=== PATIENT | male | born 1945 | race Asian ===

== ENCOUNTER 2019-05-11 23:12 | Emergency (ER) | payer OTHER ==
[2019-05-11 23:56] VITALS: BP 108/75; TEMP 98.2; BMI 24.0
--- NOTE | 2019-05-12 00:04 | PDOC ---
History of Present Illness - General Chief Complaint: Urinary Problem Stated Complaint: ABDOMINAL PAIN - History of Present Illness Initial Comments: The pt is a 74M w/ a history of HTN and Parkinson's disease who presents for evaluation of urinary retention for 36 hours. The pt reports a recent urological procedure last week. He also reports having retention before (s/p enciso removal approx 20 days ago). He denies fevers/chills, chest pain, trouble breathing, N/V, dizziness, or changes in sensation 05/12/19 01:46 Past History - Past Medical History Allergies/Adverse Reactions: Allergies Allergy/AdvReac Type Severity Reaction Status Date / Time Penicillins Allergy Verified 05/11/19 23:47 Home Medications: Ambulatory Orders Carbidopa/Levodopa [Carbidopa-Levodopa 25-100 Tab] 1 each PO QID 05/11/19 Ciprofloxacin HCl [Cipro] 500 mg PO BID 05/11/19 Tamsulosin HCl [Flomax] 0.4 mg PO DAILY 05/11/19 COPD: No Disorders: Yes (PT REPORTS UROLOGY SURGERY 04/2019/[facility]) Other medical history: Parkinson's Disease - Psycho Social/Smoking Cessation Hx Smoking History: Never smoked Have you smoked in the past 12 months: No Information on smoking cessation initiated: No Hx Alcohol Use: No Drug/Substance Use Hx: No Review of Systems - Review of Systems Able to Perform ROS?: Yes Comments:: GENERAL/CONSTITUTIONAL: No fever or chills. No weakness HEAD, EYES, EARS, NOSE AND THROAT: No change in vision. No change in hearing. No sore throat CARDIOVASCULAR: No chest pain or shortness of breath RESPIRATORY: Denies cough, hemoptysis GASTROINTESTINAL: No nausea, vomiting, diarrhea or constipation GENITOURINARY: Retention MUSCULOSKELETAL: No joint or muscle swelling or pain. No neck or back pain SKIN: No rash NEUROLOGIC: No headache, vertigo, loss of consciousness, or change in strength/ sensation ENDOCRINE: No increased thirst. No abnormal weight change HEMATOLOGIC/LYMPHATIC: No anemia, easy bleeding, or history of blood clots ALLERGIC/IMMUNOLOGIC: No hives or skin allergy 05/12/19 00:04 *Physical Exam - Vital Signs Last Vital Signs Temp Pulse Resp BP Pulse Ox 98.2 F 112 H 18 108/75 98 05/11/19 23:38 05/11/19 23:38 05/11/19 23:38 05/11/19 23:38 05/11/19 23:38 - Physical Exam Comments: GENERAL: Awake, alert, and oriented to person/place/time, in no acute distress HEAD: No signs of trauma, normocephalic, atraumatic EYES: PERRLA, EOMI, sclera anicteric, conjunctiva clear ENT: Hearing grossly normal, nares patent, oropharynx clear without exudates. Moist mucosa LUNGS: No distress, speaks in full sentences, clear to auscultation bilaterally HEART: Regular rate and rhythm, normal S1 and S2, no murmurs appreciated, peripheral pulses normal and equal bilaterally ABDOMEN: Suprapubic distention and TTP, normoactive bowel sounds EXTREMITIES: Normal inspection, Normal range of motion, no edema. No clubbing or cyanosis NEUROLOGICAL: Cranial nerves II through XII grossly intact. Normal speech, no focal sensorimotor deficits SKIN: Warm, Dry 05/12/19 00:04 Medical Decision Making - Medical Decision Making The pt is a 74M w/ a history of HTN, Parkinson's and a recent Urological procedure approx 1 week ago who presents for evaluation of urinary retention for 36 hours. ED Course Enciso placed with initial 900cc of urine output UA and UCx sent Will D/C w/ leg bag and Urology follow up Pt has Urology in [place] 05/12/19 00:51 Pt w/ evidence of UTI Pt taking Ciprofloxacin Discharge instructions and return precautions given Pt in agreement and verbalized understanding Dispo: home 05/12/19 01:45 Discharge - Discharge Information Problems reviewed: Yes Clinical Impression/Diagnosis: Urinary retention Condition: Improved Disposition: HOME - Admission No - Follow up/Referral Referrals: Omid Araiza [Primary Care Provider] - - Patient Discharge Instructions Patient Printed Discharge Instructions: DI for Urinary Retention in Men Additional Instructions: You were seen in the Emergency Department for evaluation of urinary retention. A enciso was placed. You need to follow up with your Urologist this week. Continue to take your medications as prescribed. Review the handout provided at discharge. Return to the Emergency Department if you develop blood in your urine , fevers/chills, abdominal pain, dizziness, chest pain, trouble breathing, worsening symptoms, or any new/concerning symptoms. Print Language: SWEDISH - Post Discharge Activity
--- NOTE | 2019-05-12 00:19 | PDOC ---
Documentation entered by Lin Fortune SCRIBE, acting as scribe for Lita Aguilar DO. Lita Aguilar DO: This documentation has been prepared by the Tong garcia Adrianna, SCRIBE, under my direction and personally reviewed by me in its entirety. I confirm that the documentation accurately reflects all work, treatment, procedures, and medical decision making performed by me. Attending Attestation - Resident Resident Name: Hank Hogue - ED Attending Attestation I have performed the following: I have examined & evaluated the patient, The case was reviewed & discussed with the resident, I agree w/resident's findings & plan - HPI HPI: 05/12/19 00:18 see resident hpi - Physicial Exam PE: 05/12/19 00:18 agree with resident exam - Medical Decision Making 05/12/19 00:18 74-year-old male with urinary retention Alanis catheter placed without complication by nursing with immediate return of clear yellow urine Plan for DC home with a leg bag, patient will follow up with his regular urologist in [place]
[2019-05-12 01:41] LABS: EPI CELLS 0.2 /HPF (0-5/HPF); HYALINE CASTS 106 /lpf (0-8); PH,URINE 5.5 (5.0-8.0); URINE APPEARANCE CLOUDY; URINE BILIRUBIN NEGATIVE (NEGATIVE); URINE COLOR YELLOW; URINE GLUCOSE (UA) TRACE (NEGATIVE); URINE KETONE NEGATIVE (NEGATIVE); URINE LEUK ESTERASE 2+ (NEGATIVE); URINE NITRITE POSITIVE (NEGATIVE); URINE PROTEIN NEGATIVE (NEGATIVE); URINE RBC 8 /hpf (0-4); URINE UROBILINOGEN 0.2 mg/dL (0.2-1.0); URINE WBC 88 /hpf (0-5)
[2019-05-12 02:24] VITALS: PULSE 89
== END 2019-05-12 02:26 | disposition home or self-care (01) ==
LOC: JER 23:12
PROC: 0T9B70Z Drainage of Bladder with Drainage Device, Via Natural or Artificial Opening (ICD-10-PCS; principal; 2019-05-11)
DX: R33.9 Retention of urine, unspecified (principal); Z88.0 Allergy status to penicillin; I10 Essential (primary) hypertension; G20 Parkinson's disease
CPT/HCPCS: 81003; 87086; 99283-25

== ENCOUNTER 2019-09-04 07:16 | Emergency (ER) | payer OTHER ==
[2019-09-04 07:23] VITALS: BMI 18.3
--- NOTE | 2019-09-04 07:29 | PDOC ---
History of Present Illness - General Chief Complaint: Urinary Problem Stated Complaint: URINARY PROBLEM Time Seen by Provider: 09/04/19 07:29 - History of Present Illness Initial Comments: HPI: 74yo M with PMH of BPH, Parkinson's, COPD, CAD s/p 3 stents, HTN presenting with urinary retention. Patient has had a urinary catheter in place since April 2019 following a urologic procedure. He and his present today because the catheter has not drained any urine since yesterday morning. Has not noticed any foul smelling or unusual color urine recently. Patient is experiencing abdominal discomfort due to the retention. Patient experiences frequent falls which he attributes to instability from his Parkinson's Disease. Last fell last night. No loss of consciousness, nausea, or vomiting. No saddle anesthesia, lower back pain, or bowel movement abnormalities. Denies fever or chills. PCP: Dr. Saleem Araiza Urologist: a provider in [place] ROS: Constitutional: no fever, no chills HEENT: no throat pain, no dysphagia Cardiovascular: no chest pain, no palpitations Respiratory: no cough, no shortness of breath Gastrointestinal: +abdominal pain, no nausea Genitourinary: no dysuria, +urinary retention Musculoskeletal: no myalgia, no arthralgia Skin: no rash, no itching Neurologic: no headache, no weakness Psych: no agitation, no anxiety PE: General: Awake, alert, and fully oriented, in no acute distress Head: Hematoma present on right side of forehead, wrapped with a bandage Eyes: EOMI, sclera anicteric ENT: Moist mucus membranes Neck: Normal ROM, supple Lungs: Lungs clear, Normal breath sounds Cardio: Regular rhythm, S1 and S2 present Abdomen: Soft, tenderness to palpation in suprapubic area. No CVA tenderness. Extremities: Normal range of motion, Distal pulses present SKIN: Warm, Dry, normal turgor Neurologic: Cranial nerves II through XII grossly intact. Normal speech ED Course/MDM: DDX including but not limited to UTI, BPH, prostatitis, CA, cauda equina Labs Bedside US Replace Enciso catheter Decision made to obtain CT Head and Cspine for patient's mechanical falls 09/04/19 07:29 Bedside US showing about 460cc bladder volume Enciso catheter replaced by nurse, found to be obstructed by sediment 09/04/19 08:18 CT as read by radiology: " [id number] EXAM#: TYPE/ EXAM: RESULT: CT/HEAD CT WITHOUT CONTRAST CT/CERVICAL SPINE CT W/O CONTR Status post fall. Rule out bleed CT scan of the brain. A noncontrast CT scan of the brain was performed. There is moderate volume loss and ventricular dilatation. Mild periventricular chronic microvascular ischemic changes are present No mass lesion, gross acute infarct or intracranial hemorrhage are identified. Visualized paranasal sinuses and mastoid air cells are well aerated. Calcification of the cavernous carotid arteries are noted. The calvarium is intact . There is mild soft tissue swelling of the scalp/ hematoma over right side of the forehead Impression: Moderate atrophy. No gross evidence of a focal intracranial lesion or hemorrhage is seen. Mild soft tissue swelling of the scalp/hematoma over right side of the forehead CT scan of the cervical spine without intravenous contrast Coronal and sagittal reconstruction images were obtained. Minimal retrolisthesis of C4 over C5, likely degenerative. Otherwise, no gross fracture, subluxation or prevertebral soft tissue swelling is seen. No jumped facets are identified. Moderate to marked degenerative disc disease at C4-C5 level with bilateral uncovertebral hypertrophy moderately narrowing the left foramen. C4-C5 moderate degenerative disc disease and bilateral uncovertebral hypertrophy slightly narrowing the right foramen. C3-C4 C5-C6 moderate degenerative disc disease, mainly posteriorly with mild left paracentral disc osteophyte complex and left uncovertebral hypertrophy moderately narrowing the left foramen. Visualized portion of the airway appears unremarkable. No gross enlarged lymph nodes are identified. Lung windows at the thoracic inlet demonstrates moderate COPD changes moderate size calcified plaque at the common carotid bifurcation, bilaterally IMPRESSION: The alignment is satisfactory. No gross fracture or subluxation is seen. No jumped facets are identified. Multilevel degenerative disc disease, as described above. Moderate COPD changes in the included lung apex, bilaterally. Reported By: Lakia Gandara MD 09/04/19 0930 " 09/04/19 09:40 CBC WBC 10.8 K/mm3 (4.0-10.0) H 09/04/19 08:27 RBC 5.04 M/mm3 (4.00-5.60) 09/04/19 08:27 Hgb 15.6 GM/dL (11.7-16.9) 09/04/19 08:27 Hct 46.3 % (35.4-49) 09/04/19 08:27 MCV 91.9 fl (80-96) 09/04/19 08:27 MCH 31.0 pg (25.7-33.7) 09/04/19 08: MCHC 33.8 g/dl (32.0-35.9) 09/04/19 08:27 RDW 13.6 % (11.9-15.9) 09/04/19 08:27 Plt Count 291 K/MM3 (134-434) 09/04/19 08:27 MPV 7.2 fl (7.5-11.1) L 09/04/19 08:27 Absolute Neuts (auto) 8.6 K/mm3 (1.5-8.0) H 09/04/19 08:27 Neutrophils % 80.2 % (42.8-82.8) 09/04/19 08:27 Lymphocytes % 12.2 % (8-40) 09/04/19 08: Monocytes % 6.2 % (3.8-10.2) 09/04/19 08:27 Eosinophils % 0.3 % (0-4.5) 09/04/19 08: Basophils % 1.1 % (0-2.0) 09/04/19 08:27 Nucleated RBC % 0 % (0-0) 09/04/19 08:27 Mild leukocytosis CMP Sodium 141 mmol/L (136-145) 09/04/19 08:27 Potassium 4.3 mmol/L (3.5-5.1) 09/04/19 08:27 Chloride 109 mmol/L (98-107) H 09/04/19 08:27 Carbon Dioxide 27 mmol/L (21-32) 09/04/19 08:27 Anion Gap 5 MMOL/L (8-16) L 09/04/19 08:27 BUN 14.5 mg/dL (7-18) 09/04/19 08:27 Creatinine 0.9 mg/dL (0.55-1.3) 09/04/19 08:27 Est GFR (CKD-EPI)AfAm 97.86 09/04/19 08:27 Est GFR (CKD-EPI)NonAf 84.43 09/04/19 08:27 Random Glucose 128 mg/dL (74-106) H 09/04/19 08:27 Calcium 9.0 mg/dL (8.5-10.1) 09/04/19 08:27 Total Bilirubin 0.6 mg/dL (0.2-1) 09/04/19 08:27 AST 15 U/L (15-37) 09/04/19 08:27 ALT 17 U/L (13-61) 09/04/19 08:27 Alkaline Phosphatase 101 U/L (45-117) 09/04/19 08:27 Total Protein 6.9 g/dl (6.4-8.2) 09/04/19 08:27 Albumin 3.6 g/dl (3.4-5.0) 09/04/19 08:27 Electrolytes unremarkable Normal Cr No transaminitis UTI present; given bactrim Prescription sent to pharmacy New enciso catheter well draining Patient to follow up with urologist Return precautions Stable for discharge 09/04/19 11:22 Past History - Past Medical History Allergies/Adverse Reactions: Allergies Allergy/AdvReac Type Severity Reaction Status Date / Time Penicillins Allergy Verified 09/04/19 07:23 Home Medications: Ambulatory Orders Atorvastatin Ca [Lipitor] 10 mg PO HS 09/04/19 Carbidopa/Levodopa [Carbidopa-Levodopa 25-100 Tab] 1 each PO BID 09/04/19 Clopidogrel Bisulfate [Clopidogrel] 75 mg PO DAILY 09/04/19 Finasteride [Proscar -] 5 mg PO DAILY 09/04/19 Fluticasone/Umeclidin/Vilanter [Trelegy Ellipta 100-62.5-25] 1 each IH DAILY 09/22 Metoprolol Succinate [Toprol Xl] 100 mg PO DAILY 09/04/19 Ramipril [Altace] 5 mg PO DAILY 09/04/19 Sulfamethoxazole/Trimethoprim [Bactrim Ds Tablet] 1 each PO BID #20 tablet 09/04 Tamsulosin HCl [Flomax] 0.4 mg PO DAILY 09/04/19 COPD: No Disorders: Yes (PT REPORTS UROLOGY SURGERY 04/2019/[facility]) HTN: Yes - Psycho Social/Smoking Cessation Hx Smoking History: Never smoked Have you smoked in the past 12 months: No Hx Alcohol Use: No Drug/Substance Use Hx: No *Physical Exam - Vital Signs Last Vital Signs Temp Pulse Resp BP Pulse Ox 98.5 F 90 18 125/73 99 09/04/19 07:19 09/04/19 07:19 09/04/19 07:19 09/04/19 07:19 09/04/19 07:19 ED Treatment Course - LABORATORY CBC & Chemistry Diagram: 09/04/19 08:27 09/04/19 08:27 Discharge - Discharge Information Problems reviewed: Yes Clinical Impression/Diagnosis: Problem with urinary catheter UTI (urinary tract infection) Qualifiers: Urinary tract infection type: site unspecified Hematuria presence: without hematuria Qualified Code(s): N39.0 - Urinary tract infection, site not specified Condition: Improved Disposition: HOME - Additional Discharge Information Prescriptions: Sulfamethoxazole/Trimethoprim [Bactrim Ds Tablet] 1 each PO BID #20 tablet - Follow up/Referral Referrals: Omid Araiza [Primary Care Provider] - - Patient Discharge Instructions Patient Printed Discharge Instructions: DI for Urinary Tract Infection (UTI) Additional Instructions: You came into the ED for evaluation of urinary retention. We replaced your urinary catheter. Lab work showed you have a urinary tract infection. Prescription sent to your pharmacy. Take as instructed Follow up with your urologist to discuss this ED visit and to further evaluate your symptoms. Call and make an appointment. Your workup is not complete until you do so. Immediate medical attention is required if you have worsening pain, can no long urinate, have high fevers, have chest pain, have shortness of breath, or any other new or concerning symptoms. If you think you have an emergency, return to the emergency department or call 9-11 immediately. - Post Discharge Activity
--- NOTE | 2019-09-04 08:31 | PDOC ---
Attending Attestation - Resident Resident Name: Simona Marx - ED Attending Attestation I have performed the following: I have examined & evaluated the patient, The case was reviewed & discussed with the resident, I agree w/resident's findings & plan, Exceptions are as noted - HPI HPI: 09/04/19 08:29 74 M with h/o HTN and Parkinson's disease, chronic indwelling enciso, presents to ED with clogged enciso. Pt reports no UOP since last night. He endorses suprapubic fullness and pressure, as well as the urge to urinate. Denies F/C. Denies flank pain. Pt also noted to have bruise on forehead, which he states is due to a fall. He states he falls occasionally due to his parkinson's. Denies syncope. Denies CP/ SOB/palpitations/lightheadedness. - Physicial Exam PE: 09/04/19 08:30 GENERAL: Awake, alert, and fully oriented, in no acute distress. HEAD: No signs of trauma EYES: PERRLA, EOMI, sclera anicteric, conjunctiva clear ENT: Auricles normal inspection, hearing grossly normal, nares patent, oropharynx clear without exudates. Moist mucosa NECK: Nontender, no stepoffs, Normal ROM, supple, no lymphadenopathy, JVD, or masses LUNGS: Breath sounds equal, clear to auscultation bilaterally. No wheezes, and no crackles HEART: Regular rate and rhythm, normal S1 and S2, no murmurs, rubs or gallops ABDOMEN: + suprapubic tenderness, normoactive bowel sounds. No guarding, no rebound. No masses EXTREMITIES: Normal range of motion, no edema. No clubbing or cyanosis. No cords, erythema, or tenderness NEUROLOGICAL: Cranial nerves II through XII intact. 5/5 strength and sensation in all extremities, Normal speech, normal gait, normal cerebellar function SKIN: Warm, Dry, normal turgor, no rashes or lesions noted. : enciso in place, leg bag empty - Medical Decision Making 09/04/19 08:31 74 M with clogged enciso. Bedside US shows 500cc urine in bladder. Pt also has head injury from mechanical fall. - Enciso replacement - UA, UCx - CT head/c-spine 09/04/19 08:32 Enciso replaced with successful drainage of cloudy urine UA consistent with UTI Will start abx 09/04/19 11:05 [address]s normal Pt is well appearing, with normal vitals. Clinically stable for DC at this time. I discussed the physical exam findings, ancillary test results and final diagnoses with the patient. I answered all of the patient's questions. The patient was satisfied with the care received and felt comfortable with the discharge plan and treatment plan. The patient agrees to follow up with the primary care physician within 24-72 hours.
[2019-09-04 08:44] LABS: BASO % 1.1 % (0-2.0); EOS % 0.3 % (0-4.5); HEMATOCRIT 46.3 % (35.4-49); HEMOGLOBIN 15.6 GM/dL (11.7-16.9); LYMPH % 12.2 % (8-40); MCHC 33.8 g/dl (32.0-35.9); MEAN CELL VOLUME 91.9 fl (80-96); MEAN PLT VOLUME 7.2 fl (7.5-11.1); MONO % 6.2 % (3.8-10.2); NEUT % 80.2 % (42.8-82.8); PLATELET COUNT 291 K/MM3 (134-434); RBC 5.04 M/mm3 (4.00-5.60); RDW 13.6 % (11.9-15.9); WHITE BLOOD COUNT 10.8 K/mm3 (4.0-10.0)
[2019-09-04 09:16] LABS: ALBUMIN 3.6 g/dl (3.4-5.0); BILIRUBIN,TOTAL 0.6 mg/dL (0.2-1); BLOOD UREA NITROGEN 14.5 mg/dL (7-18); CREATININE 0.9 mg/dL (0.55-1.3); POTASSIUM 4.3 mmol/L (3.5-5.1); TOT PROT 6.9 g/dl (6.4-8.2)
[2019-09-04 09:18] LABS: EPI CELLS 0.1 /HPF (0-5/HPF); HYALINE CASTS 1 /lpf (0-8); URINE APPEARANCE CLOUDY; URINE BACTERIA 1095.3 /hpf (NEGATIVE); URINE BILIRUBIN NEGATIVE (NEGATIVE); URINE COLOR YELLOW; URINE GLUCOSE (UA) NEGATIVE (NEGATIVE); URINE KETONE TRACE (NEGATIVE); URINE LEUK ESTERASE 3+ (NEGATIVE); URINE NITRITE POSITIVE (NEGATIVE); URINE PROTEIN 1+ (NEGATIVE); URINE RBC 8 /hpf (0-4); URINE UROBILINOGEN 0.2 mg/dL (0.2-1.0); URINE WBC 394 /hpf (0-5)
[2019-09-04] MEDS ORDERED: SULFAMETHOXAZOLE/TRIMETHOPRIM 800MG/160MG D.S. TABLET PO ONE (10:14)
[2019-09-04] MEDS ORDERED: SULFAMETHOXAZOLE/TRIMETHOPRIM 800MG/160MG D.S. TABLET ONE (10:34)
[2019-09-04 11:37] VITALS: BP 129/68; PULSE 85; TEMP 98.1
[2019-09-04 15:04] LABS: URINE CRYSTALS MANY /hpf
== END 2019-09-04 10:50 | disposition home or self-care (01) ==
LOC: JER 07:16
PROC: 0TWB70Z Revision of Drainage Device in Bladder, Via Natural or Artificial Opening (ICD-10-PCS; principal; 2019-09-04)
PROC: BT40ZZZ Ultrasonography of Bladder (ICD-10-PCS; 2019-09-04)
DX: N39.0 Urinary tract infection, site not specified (principal); T83.098A Other mechanical complication of other urinary catheter, initial encounter; I10 Essential (primary) hypertension; G20 Parkinson's disease; S00.83XA Contusion of other part of head, initial encounter; W19.XXXA Unspecified fall, initial encounter; Y93.89 Activity, other specified; Y92.89 Other specified places as the place of occurrence of the external cause; Y99.8 Other external cause status
CPT/HCPCS: 36415; 51702; 70450-TC; 72125-TC; 76775; 80053; 81003; 85025; 87086; 99283-25

== ENCOUNTER 2019-10-11 07:03 | Inpatient (IN) | payer OTHER ==
[2019-10-11 07:20] VITALS: BMI 18.3
--- NOTE | 2019-10-11 07:35 | PDOC ---
History of Present Illness - General Chief Complaint: Injury Stated Complaint: CHIN LAC Time Seen by Provider: 10/11/19 07:17 - History of Present Illness Initial Comments: 74yo M with PMH of BPH, Parkinson's, COPD, CAD s/p 3 stents, HTN, indwelling Alanis catheter, presenting with s/p fall this morning in the bathroom. Reports p ain and bleeding over the chin. Denies dizziness or heart palpitations prior to fall. Denies vision changes. Ambulates with a walker. Denies LOC. Denies chest pain/shortness of breath. Denies abdominal pain. Denies lower extremity swelling. Denies fever/chills. Past History - Past Medical History Allergies/Adverse Reactions: Allergies Allergy/AdvReac Type Severity Reaction Status Date / Time Penicillins Allergy Verified 09/04/19 07:23 Home Medications: Ambulatory Orders Atorvastatin Ca [Lipitor] 10 mg PO HS 09/04/19 Carbidopa/Levodopa [Carbidopa-Levodopa 25-100 Tab] 1 each PO TID 09/04/19 Clopidogrel Bisulfate [Clopidogrel] 75 mg PO DAILY 09/04/19 Finasteride [Proscar -] 5 mg PO DAILY 09/04/19 Fluticasone/Umeclidin/Vilanter [Trelegy Ellipta 100-62.5-25] 1 each IH DAILY 09/04/19 Metoprolol Succinate [Toprol Xl] 100 mg PO DAILY 09/04/19 Ramipril [Altace] 5 mg PO DAILY 09/04/19 Tamsulosin HCl [Flomax] 0.4 mg PO DAILY 09/04/19 Cardiac Disorders: Yes COPD: No Disorders: Yes (PT REPORTS UROLOGY SURGERY 04/2019/bph) HTN: Yes - Surgical History Cardiac Surgery: Yes (cardiac stent x3) Neurologic Surgery: No - Immunization History Immunization Up to Date: No - Psycho Social/Smoking Cessation Hx Smoking History: Never smoked Have you smoked in the past 12 months: No Information on smoking cessation initiated: No Hx Alcohol Use: No Drug/Substance Use Hx: No Review of Systems - Review of Systems Comments:: GENERAL/CONSTITUTIONAL: No fever or chills. No weakness._ HEAD, EYES, EARS, NOSE AND THROAT: No change in vision. No change in hearing. No sore throat. Reports laceration and bleeding over chin. CARDIOVASCULAR: No chest pain or shortness of breath_ RESPIRATORY: Denies cough, hemoptysis_ GASTROINTESTINAL: No nausea, vomiting, diarrhea or constipation._ GENITOURINARY: No dysuria, frequency, or change in urination._ MUSCULOSKELETAL: No joint or muscle swelling or pain. No neck or back pain._ SKIN: No rash_ NEUROLOGIC: No headache, vertigo, loss of consciousness, or change in strength/sensation._ ENDOCRINE: No increased thirst. No abnormal weight change_ HEMATOLOGIC/LYMPHATIC: No anemia, easy bleeding, or history of blood clots._ ALLERGIC/IMMUNOLOGIC: No hives or skin allergy._ *Physical Exam - Vital Signs Last Vital Signs Temp Pulse Resp BP Pulse Ox 98 F 114 H 16 115/79 98 10/11/19 07:16 10/11/19 07:16 10/11/19 07:16 10/11/19 07:16 10/11/19 07:16 - Physical Exam GENERAL: Awake, alert, and oriented to person/place/time, in no acute distress_ HEAD: No signs of trauma, normocephalic, atraumatic _ EYES: PERRLA, EOMI, sclera anicteric, conjunctiva clear_ ENT: Hearing grossly normal, nares patent, oropharynx clear without exudates. No uvular deviation. Moist mucosa. 2 cm laceration over chin. NECK: Normal ROM, supple, no lymphadenopathy, JVD, or masses_ LUNGS: No distress, speaks in full sentences, clear to auscultation bilaterally _ HEART: Regular rate and rhythm, normal S1 and S2, no murmurs appreciated, periph eral pulses normal and equal bilaterally._ ABDOMEN: Soft, nontender, normoactive bowel sounds. No guarding, no rebound. No masses_ EXTREMITIES: Large bruise over right elbow. TTP left hip, unable to bear weight. Neurovascularly intact distally in bilateral upper/lower extremities. Elbow flex/ext 5/5 bilaterally. 3/5 left hip flex/ext. 5/5 right hip flex/ext. 5/5 knee flex/ext, ankle dorsi/plantar flexion bilaterally. NEUROLOGICAL: Cranial nerves II through XII grossly intact. Normal speech, cristian ble to ambulate 2/2 pain, no focal sensorimotor deficits _ SKIN: Warm, Dry, normal turgor, no rashes or lesions noted_ Procedures - Laceration/Wound Repair Face Progress: 2 cm laceration over chin prominence. Verbal consent was obtained, and patient was provided with risks and alternatives to the procedure. Wound was copiously irrigated with normal saline, cleansed with chlorhexidine, and anesthetized with 3 mL of lidocaine 1%. Wound carefully explored and no foreign body, tendon injury, or nonviable tissue were noted. Using sterile technique 6-0 nylon suture was used to reapproximate the wound. 5 interrupted-sutures were placed. Patient tolerated procedure well, no complications. Patient advised to look for and return for any signs of infection such as redness, swelling, discharge, or worsening pain. Patient advised to return for suture removal within 7-10 days. ED Treatment Course - LABORATORY CBC & Chemistry Diagram: 10/12/19 06:10 10/12/19 06:10 - RADIOLOGY Radiology Studies Ordered: Category Date Time Status CERVICAL SPINE CT W/O CONTR [CT] Stat CT Scan 10/11/19 07:[address] W/O CONTRAST [CT] Stat CT Scan 10/11/19 07:[address] WITHOUT CONTRAST [CT] Stat CT Scan 10/11/19 07:33 Ordered CHEST X-RAY PORTABLE* [RAD] Stat Radiology 10/11/19 07:33 Ordered Medical Decision Making - Medical Decision Making 10/11/19 07:34 74M hx of BPH, Parkinson's, COPD, CAD s/p stents x3, HTN, presenting today s/p fall. -cbc, cmp -ekg, trop, cxr -ct head, neck, facial bones -ua, ucx -XR bilateral hip/pelvis, bilateral knee, right elbow 10/11/19 07:51 EKG shows sinus tachycardia, 113 bpm, no ST elevation, QTc 455. 10/11/19 09:25 Labs reviewed. Laboratory Last Values WBC 16.4 K/mm3 (4.0-10.0) H 10/11/19 07:50 RBC 3.91 M/mm3 (4.00-5.60) L 10/11/19 07:50 Hgb 11.9 GM/dL (11.7-16.9) 10/11/19 07:50 Hct 35.5 % (35.4-49) D 10/11/19 07:50 MCV 90.8 fl (80-96) 10/11/19 07:50 MCH 30.5 pg (25.7-33.7) 10/11/19 07:50 MCHC 33.6 g/dl (32.0-35.9) 10/11/19 07:50 RDW 13.7 % (11.9-15.9) 10/11/19 07:50 Plt Count 446 K/MM3 (134-434) H D 10/11/19 07:50 MPV 6.7 fl (7.5-11.1) L 10/11/19 07:50 Absolute Neuts (auto) 14.3 K/mm3 (1.5-8.0) H 10/11/19 07:50 Neutrophils % 87.1 % (42.8-82.8) H 10/11/19 07:50 Lymphocytes % 6.0 % (8-40) L D 10/11/19 07:50 Monocytes % 6.2 % (3.8-10.2) 10/11/19 07:50 Eosinophils % 0.1 % (0-4.5) 10/11/19 07:50 Basophils % 0.6 % (0-2.0) 10/11/19 07:50 Nucleated RBC % 0 % (0-0) 10/11/19 07:50 PT with INR 12.70 SEC (9.7-13.0) 10/11/19 07:50 INR 1.08 (0.83-1.09) 10/11/19 07:50 PTT (Actin FS) 28.2 SECONDS (25.2-36.5) 10/11/19 07:50 Sodium 141 mmol/L (136-145) 10/11/19 07:50 Potassium 3.8 mmol/L (3.5-5.1) 10/11/19 07:50 Chloride 106 mmol/L (98-107) 10/11/19 07:50 Carbon Dioxide 29 mmol/L (21-32) 10/11/19 07:50 Anion Gap 5 MMOL/L (8-16) L 10/11/19 07:50 BUN 20.3 mg/dL (7-18) H 10/11/19 07:50 Creatinine 1.0 mg/dL (0.55-1.3) 10/11/19 07:50 Est GFR (CKD-EPI)AfAm 86.15 10/11/19 07:50 Est GFR (CKD-EPI)NonAf 74.34 10/11/19 07:50 Random Glucose 157 mg/dL (74-106) H 10/11/19 07:50 Calcium 8.1 mg/dL (8.5-10.1) L 10/11/19 07:50 Total Bilirubin 1.2 mg/dL (0.2-1) H 10/11/19 07:50 AST 16 U/L (15-37) 10/11/19 07:50 ALT 17 U/L (13-61) 10/11/19 07:50 Alkaline Phosphatase 119 U/L (45-117) H 10/11/19 07:50 Creatine Kinase 350 U/L (26-308) H 10/11/19 07:50 Creatine Kinase Index 0.4 % (0.0-5.0) 10/11/19 07:50 CK-MB (CK-2) 1.6 ng/mL (0.5-3.6) 10/11/19 07:50 Troponin I < 0.02 ng/ml (0.00-0.05) 10/11/19 07:50 Total Protein 6.4 g/dl (6.4-8.2) 10/11/19 07:50 Albumin 3.1 g/dl (3.4-5.0) L 10/11/19 07:50 10/11/19 09:40 CT head negative for acute intracranial hemorrhage or pathology. CT c-spine negative for fracture. CT facial bones negative for fracture. 10/11/19 11:15 XR bilateral hips show no fracture or acute pathology. XR bilateral knees shows no fracture or acute pathology. XR right elbow shows no fracture or acute pathology. CXR shows ill defined opacity in right middle lung field. 10/11/19 12:11 Pt reassessed. Continues to be unable to ambulate 2/2 pain. D/w Dr. Hwang who accepts the pt for admission. 10/11/19 18:55 Called to bedside by nurse. Pt found sitting on the ground next to his bed. Bed rail is up. Likely climbed over rail. Will initiate post fall protocol. Discharge - Discharge Information Problems reviewed: Yes Clinical Impression/Diagnosis: Fall Condition: Stable - Admission Yes - Follow up/Referral - Patient Discharge Instructions - Post Discharge Activity
[2019-10-11 08:25] LABS: BASO % 0.6 % (0-2.0); EOS % 0.1 % (0-4.5); HEMATOCRIT 35.5 % (35.4-49); HEMOGLOBIN 11.9 GM/dL (11.7-16.9); MCH 30.5 pg (25.7-33.7); MCHC 33.6 g/dl (32.0-35.9); MEAN CELL VOLUME 90.8 fl (80-96); MEAN PLT VOLUME 6.7 fl (7.5-11.1); MONO % 6.2 % (3.8-10.2); NEUT % 87.1 % (42.8-82.8); PLATELET COUNT 446 K/MM3 (134-434); RBC 3.91 M/mm3 (4.00-5.60); RDW 13.7 % (11.9-15.9); WHITE BLOOD COUNT 16.4 K/mm3 (4.0-10.0)
[2019-10-11 08:38] LABS: INR 1.08 (0.83-1.09); PROTHROMBIN TIME (PATIENT) 12.7 SEC (9.7-13.0)
[2019-10-11 08:40] LABS: ACTIVATED PTT 28.2 SECONDS (25.2-36.5)
[2019-10-11 09:10] LABS: ALBUMIN 3.1 g/dl (3.4-5.0); BILIRUBIN,TOTAL 1.2 mg/dL (0.2-1); BLOOD UREA NITROGEN 20.3 mg/dL (7-18); CALCIUM 8.1 mg/dL (8.5-10.1); POTASSIUM 3.8 mmol/L (3.5-5.1); TOT PROT 6.4 g/dl (6.4-8.2)
--- NOTE | 2019-10-11 11:34 | PDOC ---
Documentation entered by Layla Ocampo SCRIBE, acting as scribe for Eladio Perez MD. Eladio Perez MD: This documentation has been prepared by the Radha garcia Nirvannie, SCRIBE, under my direction and personally reviewed by me in its entirety. I confirm that the documentation accurately reflects all work, treatment, procedures, and medical decision making performed by me. Attending Attestation - Resident Resident Name: August Monroe - ED Attending Attestation I have performed the following: I have examined & evaluated the patient, The case was reviewed & discussed with the resident, I agree w/resident's findings & plan - HPI HPI: 10/11/19 11:19 The patient is a 74 year old male, with a significant past medical history of CAD (s/p cardiac stenting x3), COPD, Parkinsons Disease, BPH, who presents to the emergency department s/p fall with pain and laceration to the chin. As per patient, he was in the bathroom this morning at which time he fell sustaining a laceration, prompting his arrival to the ED. He denies any LOC, diaphoresis, chest pain, shortness of breath, dizziness, or palpitations. Allergies: Penicillins Primary Care Physician: Dr. Araiza - Physicial Exam PE: 10/11/19 11:31 Afebrile, slight tachycardia at triage, resolved by exam Patient is alert lying in stretcher, no acute distress but discomfort with positional changes No head injury, full range of motion of neck without C-spine tenderness Chin laceration status post repair, well approximated, no foreign body or mandibular tenderness Chest tenderness along the lateral/posterior axillary portion of ribs 6 and 7 with overlying skin hematoma Lungs clear and symmetric, heart is regular Abdomen benign Extremities with full active and passive range of motion without focal bony tenderness or joint effusion, but with significant ecchymosis overlying the right elbow and right knee Neurologically nonfocal, 2+ distal pulses - Medical Decision Making 10/11/19 11:32 74-year-old male with history of Parkinson's presents status post fall with chin laceration, possible rib fracture, joint contusions. Question duration on ground but report from family states they heard the fall and patient was helped to his feet quickly, patient is hemodynamically stable here. Trauma imaging Labs, urinalysis Likely need admission given extent of injuries and associated comorbidities Heart Score/ECG Review #1 ECG reviewed & interpreted by me at: 07:42 General ECG Interpretation: Sinus Rhythm (tachy at 113), Normal Intervals (qtc 455), No acute ischemic changes
--- NOTE | 2019-10-11 13:20 | HP ---
CHIEF COMPLAINT: s/p fall ( MILI # [id number]) PCP: Dr. Araiza HISTORY OF PRESENT ILLNESS: 74 y/o macedonian speaking male male with PMH of CAD s/p stents (on plavix), BPH, HTN , COPD, parkinsons presents to the ED s/p fall- as per the and him he was going to the bathroom this morning when he tripped and fell (patient is unsteady at baseline 2/2 parkinsons and uses a cane sporadically) forward injuring his chi, b/l knees, elbows, and rib so he came here; he denies hitting his head- denies any headaches/dizziness/chest pain- as per the he does have frequent falls ; denies any cough/recent travel or sick contacts ER course was notable for: (1) vitals: tachy; (2) wbc 16.4, Cr 1.0, Tbilli 1.2 CK 350 (3)imaging all negative (4) chin lac repair performed Recent Travel: denies PAST MEDICAL HISTORY: see above PAST SURGICAL HISTORY: CAD s/p stents Social History: Smoking:denies Alcohol:denies Drugs: deniews Allergies Penicillins Allergy (Verified 09/04/19 07:23) HOME MEDICATIONS: Home Medications Medication Instructions Recorded Atorvastatin Ca [Lipitor] 10 mg PO HS 09/04/19 Carbidopa/Levodopa 1 each PO BID 09/04/19 [Carbidopa-Levodopa 25-100 Tab] Clopidogrel Bisulfate [Clopidogrel] 75 mg PO DAILY 09/04/19 Finasteride [Proscar -] 5 mg PO DAILY 09/04/19 Fluticasone/Umeclidin/Vilanter 1 each IH DAILY 09/04/19 [Trelegy Ellipta 100-62.5-25] Metoprolol Succinate [Toprol Xl] 100 mg PO DAILY 09/04/19 Ramipril [Altace] 5 mg PO DAILY 09/04/19 Sulfamethoxazole/Trimethoprim 1 each PO BID #20 tablet 09/04/19 [Bactrim Ds Tablet] Tamsulosin HCl [Flomax] 0.4 mg PO DAILY 09/04/19 REVIEW OF SYSTEMS CONSTITUTIONAL: Absent: fever, chills, diaphoresis, generalized weakness, malaise, loss of appetite, weight change HEENT: Absent: rhinorrhea, nasal congestion, throat pain, throat swelling, difficulty swallowing, mouth swelling, ear pain, eye pain, visual changes CARDIOVASCULAR: Absent: chest pain, syncope, palpitations, irregular heart rate, lightheadedness, peripheral edema RESPIRATORY: Absent: cough, shortness of breath, dyspnea with exertion, orthopnea, wheezing, stridor, hemoptysis GASTROINTESTINAL: Absent: abdominal pain, abdominal distension, nausea, vomiting, diarrhea, constipation, melena, hematochezia GENITOURINARY: Absent: dysuria, frequency, urgency, hesitancy, hematuria, flank pain, genital pain MUSCULOSKELETAL: Present: arthralgia, myalgia Absent: myalgia, arthralgia, joint swelling, back pain, neck pain SKIN: Absent: rash, itching, pallor HEMATOLOGIC/IMMUNOLOGIC: Absent: easy bleeding, easy bruising, lymphadenopathy, frequent infections ENDOCRINE: Absent: unexplained weight gain, unexplained weight loss, heat intolerance, cold intolerance NEUROLOGIC: Absent: headache, focal weakness or paresthesias, dizziness, unsteady gait, seizure, mental status changes, bladder or bowel incontinence PSYCHIATRIC: Absent: anxiety, depression, suicidal or homicidal ideation, hallucinations. PHYSICAL EXAMINATION Vital Signs - 24 hr 10/11/19 07:16 Temperature 98 F Pulse Rate 114 H Respiratory 16 Rate Blood Pressure 115/79 O2 Sat by Pulse 98 Oximetry (%) GENERAL: Awake, alert, in slight acute distress HEAD: Normal with no signs of trauma. EYES: PEERLA; EOMI; no scleral icterus . NECK: +chin injury s/p lac repair LUNGS: CTA B/L; no rales, rhonch or wheezing. HEART: Regular rate and rhythm, normal S1 and S2 without murmur, rub or gallop. ABDOMEN: Soft, soft; NT/ND +BS in all 4 quadrants; + tenderness on b/l ribs MUSCULOSKELETAL: slight decreased ROM on right LE ; UPPER EXTREMITIES:b/l hematomas on b/l elbows LOWER EXTREMITIES: Right knee hematoma with slight swelling; warm; well-perfused no clubbing/cyanosis or edema . NEUROLOGICAL: Cranial nerves II-XII intact. Normal speech. Normal gait. SKIN: Warm, dry, bruising B/L elbows and knees Laboratory Results - last 24 hr 10/11/19 10/11/19 10/11/19 07:50 07:50 07:50 WBC 16.4 H RBC 3.91 L Hgb 11.9 Hct 35.5 D MCV 90.8 MCH 30.5 MCHC 33.6 RDW 13.7 Plt Count 446 H D MPV 6.7 L Absolute Neuts (auto) 14.3 H Neutrophils % 87.1 H Lymphocytes % 6.0 L D Monocytes % 6.2 Eosinophils % 0.1 Basophils % 0.6 Nucleated RBC % 0 PT with INR INR PTT (Actin FS) Sodium 141 Potassium 3.8 Chloride 106 Carbon Dioxide 29 Anion Gap 5 L BUN 20.3 H Creatinine 1.0 Est GFR (CKD-EPI)AfAm 86.15 Est GFR (CKD-EPI)NonAf 74.34 Random Glucose 157 H Calcium 8.1 L Total Bilirubin 1.2 H AST 16 ALT 17 Alkaline Phosphatase 119 H Creatine Kinase 350 H Creatine Kinase Index 0.4 CK-MB (CK-2) 1.6 Troponin I < 0.02 Total Protein 6.4 Albumin 3.1 L 10/11/19 07:50 WBC RBC Hgb Hct MCV MCH MCHC RDW Plt Count MPV Absolute Neuts (auto) Neutrophils % Lymphocytes % Monocytes % Eosinophils % Basophils % Nucleated RBC % PT with INR 12.70 INR 1.08 PTT (Actin FS) 28.2 Sodium Potassium Chloride Carbon Dioxide Anion Gap BUN Creatinine Est GFR (CKD-EPI)AfAm Est GFR (CKD-EPI)NonAf Random Glucose Calcium Total Bilirubin AST ALT Alkaline Phosphatase Creatine Kinase Creatine Kinase Index CK-MB (CK-2) Troponin I Total Protein Albumin ASSESSMENT/PLAN: 74 y/o macedonian speaking male male with PMH of CAD s/p stents (on plavix), BPH, HTN , parkinsons, COPD presents to the ED s/p fall #S/P Fall likely 2/2 mechanical fall however cannot rule out syncope -current imaging negative thus far -ab/pelvis CT pending to r/o retroperitoneal bleed -BL rib xray pending -tramadol PRN pain control -repeat CK -IVF -surgery consult -cardio consult -hold AC for now until cardio consult -repeat head CT in AM -PT eval -repeat CK and CBC #HTN c/w toprol and ramipril -monitor hemodynamics #CAD holding plavix until cleared by cardio #BPH c/w finasteride and flomax #Parkinsons c/w sinemet -neuro eval #COPD not currently in exacerbation -patient uses brio ellipta at home -albuterol PRN F/E/N NS @75 monitor electrolytes sodium controlled diet dvt ppx: scds Family Medical History Family History: Denies Problem List - Problem (1) Fall Code(s): W19.XXXA - UNSPECIFIED FALL, INITIAL ENCOUNTER (2) HTN (hypertension) Code(s): I10 - ESSENTIAL (PRIMARY) HYPERTENSION (3) CAD (coronary artery disease) Code(s): I25.10 - ATHSCL HEART DISEASE OF [place] CORONARY ARTERY W/O ANG PCTRS (4) Parkinsons Code(s): G20 - PARKINSON'S DISEASE Visit type - Emergency Visit Emergency Visit: Yes ED Registration Date: 10/11/19 Care time: The patient presented to the Emergency Department on the above date and was hospitalized for further evaluation of their emergent condition. - New Patient This patient is new to me today: Yes Date on this admission: 10/11/19 - Critical Care Critical Care patient: No ATTENDING PHYSICIAN STATEMENT I saw and evaluated the patient. I reviewed the resident's note and discussed the case with the resident. I agree with the resident's findings and plan as documented. SUBJECTIVE: OBJECTIVE: ASSESSMENT AND PLAN:
[2019-10-11] MEDS: SODIUM CHLORIDE 1,000 ML IV SCH (14:07)
[2019-10-11] MEDS ORDERED: traMADol HCL 50 MG TABLET PO PRN (14:17)
--- NOTE | 2019-10-11 14:23 | CON.CARD ---
Consult Consult Specialty:: cardiology Reason for Consultation:: CAD; s/p fall - History of Present Illness History of Present Illness: 74yo man (andrae Colindres), with PMH of Parkinson's, COPD, CAD s/p 3 stents, HTN, hyperlipidemia, indwelling Alanis catheter, BPH, now presenting with s/p fall this morning in the bathroom. Reports pain and bleeding over the chin. Denies dizziness or heart palpitations prior to fall. Denies vision changes or LOC. At home, uses a walker. Denies chest pain/shortness of breath. Denies abdominal pain. Denies lower extremity swelling. Denies fever/chills. - History Source History Provided By: Medical Record Limitations to Obtaining History: Language Barrier - Past Medical History PAVER LAYER: Yes: Parkinson's Cardio/Vascular: Yes: CAD (s/p PCI), HTN, Hyperlipdemia Renal/: Yes: BPH - Past Surgical History Past Surgical History: Yes: Stent (coronary) - Alcohol/Substance Use Hx Alcohol Use: No - Smoking History Smoking history: Never smoked Have you smoked in the past 12 months: No Home Medications - Allergies Allergies/Adverse Reactions: Allergies Allergy/AdvReac Type Severity Reaction Status Date / Time Penicillins Allergy Verified 09/04/19 07:23 - Home Medications Home Medications: Ambulatory Orders Atorvastatin Ca [Lipitor] 10 mg PO HS 09/04/19 Carbidopa/Levodopa [Carbidopa-Levodopa 25-100 Tab] 1 each PO TID 09/04/19 Clopidogrel Bisulfate [Clopidogrel] 75 mg PO DAILY 09/04/19 Finasteride [Proscar -] 5 mg PO DAILY 09/04/19 Fluticasone/Umeclidin/Vilanter [Trelegy Ellipta 100-62.5-25] 1 each IH DAILY 09/04/19 Metoprolol Succinate [Toprol Xl] 100 mg PO DAILY 09/04/19 Ramipril [Altace] 5 mg PO DAILY 09/04/19 Tamsulosin HCl [Flomax] 0.4 mg PO DAILY 09/04/19 - Risk Factors Known Risk Factors: Yes: Age, Gender, Hypercholesterolemia, Hypertension, Other (CAD; s/p PCI) Vital Signs: Vital Signs Temperature 98 F 10/11/19 07:16 Pulse Rate 114 H 10/11/19 07:16 Respiratory Rate 16 10/11/19 07:16 Blood Pressure 115/79 10/11/19 07:16 O2 Sat by Pulse Oximetry (%) 98 10/11/19 07:16 Constitutional: Yes: No Distress Eyes: Yes: WNL HENT: Yes: WNL Neck: Yes: WNL Respiratory: Yes: WNL Gastrointestinal: Yes: WNL Renal/: No: Anuria Cardiovascular: Yes: Regular Rate and Rhythm, Tachycardia Heart Sounds: Yes: S1, S2 Musculoskeletal: Yes: Muscle Pain, Muscle Weakness Edema: No Peripheral Pulses WNL: Yes Integumentary: Yes: Bruising, Laceration Neurological: Yes: Alert, Weakness Psychiatric: Yes: Alert - Other Data Labs, Other Data: CBC, BMP 10/11/19 07:50 10/11/19 07:50 INR, PTT INR 1.08 (0.83-1.09) 10/11/19 07:50 Troponin, BNP 10/11/19 07:50 Troponin I < 0.02 Troponin, BNP 10/11/19 07:50 Troponin I < 0.02 Abnormal Lab Results 10/11/19 10/11/19 10/11/19 07:50 07:50 07:50 WBC 16.4 H RBC 3.91 L Hgb Hct Plt Count 446 H D MPV 6.7 L Absolute Neuts (auto) 14.3 H Neutrophils % 87.1 H Lymphocytes % 6.0 L D Anion Gap 5 L BUN 20.3 H Random Glucose 157 H Hemoglobin A1c % Calcium 8.1 L Total Bilirubin 1.2 H Alkaline Phosphatase 119 H Creatine Kinase 350 H Albumin 3.1 L 10/11/19 10/11/19 10/11/19 09:00 18:12 18:12 WBC 15.8 H RBC 3.80 L Hgb 11.5 L Hct 34.5 L Plt Count 464 H MPV 6.9 L Absolute Neuts (auto) Neutrophils % Lymphocytes % Anion Gap BUN Random Glucose Hemoglobin A1c % 6.8 H Calcium Total Bilirubin Alkaline Phosphatase Creatine Kinase 694 H Albumin Echo: Report Reviewed Prior Cardiac Procedures: Cardiac Catheterization, PTCA with Stent Ejection Fraction %: LVEF > or = 40 % Imaging - Results Chest X-ray: Image Reviewed EKG: Image Reviewed Problem List - Problems (1) Hyperlipidemia Assessment/Plan: f/u lipid profile Code(s): E78.5 - HYPERLIPIDEMIA, UNSPECIFIED (2) BPH (benign prostatic hyperplasia) Assessment/Plan: f/u with urologist. Code(s): N40.0 - BENIGN PROSTATIC HYPERPLASIA WITHOUT LOWER URINRY TRACT SYMP (3) CAD (coronary artery disease) Assessment/Plan: Hx CAD-->PCI. TNI < 0.02 x 2 . EKG sinus tachycardia; ill-defined density in right mid-field (CXR). ECHO (technically difficult study): normal LVEF. F/u prior cardiac workup; hx coronary stents. F/u lipid profile. Code(s): I25.10 - ATHSCL HEART DISEASE OF [place] CORONARY ARTERY W/O ANG PCTRS (4) Fall Assessment/Plan: Hx Parkinson's; uses walker at home. Multiple falls , especially since April, associated with Parkinsons, per wi fe. R/o syncope. Orthostatic VS. Avoid dehydration. ECHO: normal LVEF. F/u carotid artery US. Code(s): W19.XXXA - UNSPECIFIED FALL, INITIAL ENCOUNTER (5) HTN (hypertension) Code(s): I10 - ESSENTIAL (PRIMARY) HYPERTENSION (6) Parkinsons Assessment/Plan: On levo/carbidopa. Code(s): G20 - PARKINSON'S DISEASE (7) Problem with urinary catheter Code(s): T83.9XXA - UNSP COMPLICATION OF GENITOURINARY PROSTH DEV/GRFT, INIT (8) Urinary retention Code(s): R33.9 - RETENTION OF URINE, UNSPECIFIED (9) Hyperglycemia Assessment/Plan: F/u fasting glucose; HGBA1c. Code(s): R73.9 - HYPERGLYCEMIA, UNSPECIFIED (10) Sinus tachycardia Assessment/Plan: Multiple factors may be contributing to this, including pain, anemia, anxiety. CXR: "ill-defined right mid-lung field density"; f/u, and consider r/o of PE, though normal O2 sat on RA. Code(s): R00.0 - TACHYCARDIA, UNSPECIFIED (11) Anemia Assessment/Plan: mild decrease in Hb this admission. Code(s): D64.9 - ANEMIA, UNSPECIFIED
--- NOTE | 2019-10-11 15:07 | ECHO ---
Name: ZORA PATTEN Exam:Adult Echocardiogram Study Date: 10/11/2019 02:18 PM Age: 74 yrs Reason For Study: CAD, S/P Fall, Syncope Height: 65 in Weight: 110 lb BSA: 1.5 m2 MMode/2D Measurements & Calculations IVSd: 0.89 cm LVPWs: 1.0 cm LVIDd: 3.9 cm LVIDs: 2.2 cm LVPWd: 0.86 cm IVSs: 1.1 cm EDV(Teich): 64.7 ml ESV(Teich): 16.5 ml Doppler Measurements & Calculations Ao V2 max: 237.7 cm/sec TR max rubina: 250.8 cm/sec Ao max P.6 mmHg TR max P.2 mmHg Ao V2 mean: 176.9 cm/sec Ao mean P.6 mmHg Ao V2 VTI: 45.5 cm PA V2 max: 40.5 cm/sec PA max P.66 mmHg Procedure The study was technically difficult with many images being suboptimal in quality. Left Ventricle The left ventricle is normal in size. On the limited veiws, no gross wall motion abnormalities. Right Ventricle The right ventricle is normal in size and function. Atria The left atrium is not well visualized. Right atrium not well visualized. Mitral Valve There is moderate mitral annular calcification. There is no mitral valve stenosis. Tricuspid Valve The tricuspid valve is not well visualized. Assuming the RA pressure is 5 mmHg. Aortic Valve The aortic valve is not well visualized. Pulmonic Valve The pulmonic valve is not well visualized. Great Vessels The aortic root is not well visualized. Pericardium/Pleura Small pericardial effusion (<1cm). There are no echocardiographic indications of cardiac tamponade. Interpretation Summary The study was technically difficult with limited diagnostic information. On the limited veiws, no gross wall motion abnormalities. The right ventricle is normal in size and function. There is moderate mitral annular calcification. Small pericardial effusion (<1cm). There are no echocardiographic indications of cardiac tamponade. Barrington Rockwell 10/11/2019 03:07 PM
--- NOTE | 2019-10-11 16:13 | EKG ---
Test Reason : Blood Pressure : / mmHG Vent. Rate : 113 BPM Atrial Rate : 113 BPM P-R Int : 124 ms QRS Dur : 090 ms QT Int : 332 ms P-R-T Axes : 084 -18 049 degrees QTc Int : 455 ms SINUS TACHYCARDIA POSSIBLE LEFT ATRIAL ENLARGEMENT BORDERLINE ECG NO PREVIOUS ECGS AVAILABLE Confirmed by Barrington Rockwell ([id number]) on 10/11/2019 4:12:51 PM Referred By: Confirmed By:Barrington Rockwell
[2019-10-11 18:36] LABS: HEMATOCRIT 34.5 % (35.4-49); HEMOGLOBIN 11.5 GM/dL (11.7-16.9); MCH 30.3 pg (25.7-33.7); MCHC 33.4 g/dl (32.0-35.9); MEAN CELL VOLUME 90.8 fl (80-96); MEAN PLT VOLUME 6.9 fl (7.5-11.1); PLATELET COUNT 464 K/MM3 (134-434); RDW 13.6 % (11.9-15.9); WHITE BLOOD COUNT 15.8 K/mm3 (4.0-10.0)
[2019-10-11] MEDS ORDERED: CARBIDOPA/LEVODOPA 25/100 TABLET (FP) ONE ×2 (18:46→22:35)
--- NOTE | 2019-10-11 18:52 | PN ---
Teaching Attending Note Name of Resident: Annika Presley ATTENDING PHYSICIAN STATEMENT I saw and evaluated the patient. I reviewed the resident's note and discussed the case with the resident. I agree with the resident's findings and plan as documented. SUBJECTIVE: Patient seen and examined at beside, endorses mechanical fall earlier this morning but both him and his are poor historians. H/o multiple falls in the past. Objective: GA comfortable, alert, speaking Amharic HEENT NC, trauma to chin+ w/ dressing, neck supple, no conjunctival hemorrhages, EOMI, no c-spine tenderness Chest CTAB, no crackles, R chest wall pain+ w/ small bruise CVS S1, S2+, RRR Abd Soft, NT, ND, thin body habitus Ext multiple bruises on arms/legs/knees, w/ ?hemarthrosis of R knee w/ limited ROM, good ROM L knee, no calf tenderness Neuro CN 2-12 grossly intact, calm, normal mood, answering to questions Vital Signs - 24 hr 10/11/19 07:16 Temperature 98 F Pulse Rate 114 H Respiratory 16 Rate Blood Pressure 115/79 O2 Sat by Pulse 98 Oximetry (%) Laboratory Results - last 24 hr 10/11/19 10/11/19 10/11/19 07:50 07:50 07:50 WBC 16.4 H RBC 3.91 L Hgb 11.9 Hct 35.5 D MCV 90.8 MCH 30.5 MCHC 33.6 RDW 13.7 Plt Count 446 H D MPV 6.7 L Absolute Neuts (auto) 14.3 H Neutrophils % 87.1 H Lymphocytes % 6.0 L D Monocytes % 6.2 Eosinophils % 0.1 Basophils % 0.6 Nucleated RBC % 0 PT with INR INR PTT (Actin FS) Sodium 141 Potassium 3.8 Chloride 106 Carbon Dioxide 29 Anion Gap 5 L BUN 20.3 H Creatinine 1.0 Est GFR (CKD-EPI)AfAm 86.15 Est GFR (CKD-EPI)NonAf 74.34 Random Glucose 157 H Hemoglobin A1c % Calcium 8.1 L Total Bilirubin 1.2 H AST 16 ALT 17 Alkaline Phosphatase 119 H Creatine Kinase 350 H Creatine Kinase Index 0.4 CK-MB (CK-2) 1.6 Troponin I < 0.02 Total Protein 6.4 Albumin 3.1 L TSH 0.42 10/11/19 10/11/19 10/11/19 07:50 09:00 18:12 WBC 15.8 H RBC 3.80 L Hgb 11.5 L Hct 34.5 L MCV 90.8 MCH 30.3 MCHC 33.4 RDW 13.6 Plt Count 464 H MPV 6.9 L Absolute Neuts (auto) Neutrophils % Lymphocytes % Monocytes % Eosinophils % Basophils % Nucleated RBC % PT with INR 12.70 INR 1.08 PTT (Actin FS) 28.2 Sodium Potassium Chloride Carbon Dioxide Anion Gap BUN Creatinine Est GFR (CKD-EPI)AfAm Est GFR (CKD-EPI)NonAf Random Glucose Hemoglobin A1c % 6.8 H Calcium Total Bilirubin AST ALT Alkaline Phosphatase Creatine Kinase Creatine Kinase Index CK-MB (CK-2) Troponin I Total Protein Albumin TSH Home Medications Medication Instructions Recorded Atorvastatin Ca [Lipitor] 10 mg PO HS 09/04/19 Carbidopa/Levodopa 1 each PO TID 09/04/19 [Carbidopa-Levodopa 25-100 Tab] Clopidogrel Bisulfate [Clopidogrel] 75 mg PO DAILY 09/04/19 Finasteride [Proscar -] 5 mg PO DAILY 09/04/19 Fluticasone/Umeclidin/Vilanter 1 each IH DAILY 09/04/19 [Trelegy Ellipta 100-62.5-25] Metoprolol Succinate [Toprol Xl] 100 mg PO DAILY 09/04/19 Ramipril [Altace] 5 mg PO DAILY 09/04/19 Sulfamethoxazole/Trimethoprim 1 each PO BID #20 tablet 09/04/19 [Bactrim Ds Tablet] Tamsulosin HCl [Flomax] 0.4 mg PO DAILY 09/04/19 Current Medications Generic Name Dose Route Start Last Admin Trade Name Freq PRN Reason Stop Dose Admin Atorvastatin Calcium 10 mg 10/11/19 22:00 Lipitor - PO HS GIRISH Carbidopa/Levodopa 1 each 10/11/19 14:00 Sinemet 25/100 - PO TID GIRISH Finasteride 5 mg 10/12/19 10:00 Proscar - PO DAILY GIRISH Sodium Chloride 1,000 mls @ 75 mls/hr 10/11/19 13:15 10/11/19 14:07 Normal Saline - IV 75 mls/hr ASDIR GIRISH Administration Metoprolol Succinate 100 mg 10/12/19 10:00 Toprol Xl - PO DAILY GIRISH Ramipril 5 mg 10/12/19 10:00 Altace - PO DAILY GIRISH Tamsulosin HCl 0.4 mg 10/12/19 08:30 Flomax - PO DAILY@0830 GIRISH Tramadol HCl 25 mg 10/11/19 14:17 Ultram - PO Q6H PRN PAIN LEVEL 4 - 6 A/P: 74 Amharic speaking M h/o CAD s/p stents (3) on Plavix, multiple falls in the past, BPH, HTN , Parkinson's, COPD not on O2 presents to the ED s/p fall, unclear whether mechanical v.s. syncopal. S/P Fall ?mechanical v.s. syncopal (pt. and his poor historians) Sanchez-CT r/o RP bleeding, rib series b/l r/o fractures Echo, Carotids, trops x3, orthostatics, UA, sanchez cultures Cardiology evaluation Neurology evaluation Trauma surgery evaluation (for R knee ?hemarthrosis), hold NSAIDs, hold AC, Hold AP drugs HTN obtain orthostatics if positive hold antihypertensives if negative restart BP meds as BP tolerates CAD hold Plavix and AC in view of extensive bruising restart BB as BP tolerates, cont. statin BPH Flomax, Finasteride cont. monitor urine output Parkinson's neuro evaluation cont. Sinamet COPD not on O2, not in acute exacerbation duonebs PRN, O2 PRN Tele monitoring DVT ppx: SCD for now
[2019-10-11] MEDS: CARBIDOPA/LEVODOPA 25/100 TABLET (FP) PO SCH ×2 (18:55→23:02)
[2019-10-11] MEDS ORDERED: traMADol HCL 50 MG TABLET ONE (22:35)
[2019-10-11] MEDS ORDERED: ATORVASTATIN CA 10 MG TABLET (FP) ONE (22:35)
[2019-10-11] MEDS: ATORVASTATIN CA 10 MG TABLET (FP) PO SCH (23:02)
[2019-10-12] MEDS ORDERED: CARBIDOPA/LEVODOPA 25/100 TABLET (FP) ONE ×2 (06:28→10:14)
[2019-10-12] MEDS: CARBIDOPA/LEVODOPA 25/100 TABLET (FP) PO SCH ×5 (06:30→21:34)
[2019-10-12 07:02] LABS: BASO % 0.8 % (0-2.0); EOS % 0.9 % (0-4.5); HEMATOCRIT 30.1 % (35.4-49); HEMOGLOBIN 10.4 GM/dL (11.7-16.9); LYMPH % 13.4 % (8-40); MCHC 34.4 g/dl (32.0-35.9); MEAN CELL VOLUME 90.1 fl (80-96); MONO % 7.7 % (3.8-10.2); NEUT % 77.2 % (42.8-82.8); PLATELET COUNT 434 K/MM3 (134-434); RBC 3.34 M/mm3 (4.00-5.60); RDW 13.6 % (11.9-15.9); WHITE BLOOD COUNT 10.7 K/mm3 (4.0-10.0)
[2019-10-12 07:19] LABS: INR 1.06 (0.83-1.09); PROTHROMBIN TIME (PATIENT) 12.5 SEC (9.7-13.0)
[2019-10-12 07:22] LABS: ACTIVATED PTT 27.7 SECONDS (25.2-36.5)
[2019-10-12 07:31] LABS: ALBUMIN 2.7 g/dl (3.4-5.0); ALK PHOS 102 U/L (45-117); ANION GAP 8 MMOL/L (8-16); BLOOD UREA NITROGEN 21.8 mg/dL (7-18); CALCIUM 8.1 mg/dL (8.5-10.1); CHLORIDE 106 mmol/L (98-107); CHOLESTEROL 146 mg/dL (50-200); CO2 27 mmol/L (21-32); CREATININE 0.8 mg/dL (0.55-1.3); GLUCOSE,RANDOM 142 mg/dL (74-106); HDL CHOLESTEROL 57 mg/dL (40-60); LDL CHOLESTEROL (ONLY SJRH) 78 mg/dL (5-100); MAGNESIUM 2.2 mg/dL (1.8-2.4); PHOSPHOROUS 2.4 mg/dL (2.5-4.9); SGOT/AST 18 U/L (15-37); SGPT/ALT < 6 U/L (13-61); SODIUM 141 mmol/L (136-145); TOT PROT 5.5 g/dl (6.4-8.2); TRIGLYCERIDES 91 mg/dL (0-150)
[2019-10-12] MEDS: TAMSULOSIN HCL 0.4 MG CAP PO SCH (08:47)
--- NOTE | 2019-10-12 08:54 | CONSULT ---
Consult - text type - Consultation Consultation Note: Neurology CHIEF COMPLAINT: s/p fall PCP: Dr. Araiza HISTORY OF PRESENT ILLNESS: 74 y/o tajik speaking male with PMH of CAD s/p stents (on plavix), BPH, HTN , COPD, parkinsons presented to the ED s/p fall- as per the and him he was going to the bathroom on morning of admission when he tripped and fell (patient is unsteady at baseline 2/2 parkinsons and uses a cane sporadically) forward injuring his chi, b/l knees, elbows, and rib so he came here; he denied hitting his head- denied any headaches/dizziness/chest pain- as per the he does have frequent falls ; denied any cough/recent travel or sick contacts. CT of Cervical spine reviewed and showed no acute fracture. Multilevel degenerative changes. Head CT performed and demonstrated no acute pathology. Repeated Head CT also reviewed and demonstrated no acute pathology. He is calm and comfortable this morning, remains on Sinemet 25/100, 3 times a day and does have bradykine beryl with [id number] cogwheeling. He may benefit from a slightly increased dose of Sinemet and would advise increasing to 4 times a day. May also require short-term rehabilitation and physical therapy to help with gait and ambulation if patient and family agreeable. Recent Travel: denies PAST MEDICAL HISTORY: see above PAST SURGICAL HISTORY: CAD s/p stents Family History: HTN Social History: Smoking:denies Alcohol:denies Drugs: deniews REVIEW OF SYSTEMS CONSTITUTIONAL: Absent: fever, chills, diaphoresis, generalized weakness, malaise, loss of appetite, weight change HEENT: Absent: rhinorrhea, nasal congestion, throat pain, throat swelling, difficulty swallowing, mouth swelling, ear pain, eye pain, visual changes CARDIOVASCULAR: Absent: chest pain, syncope, palpitations, irregular heart rate, lightheadedness, peripheral edema RESPIRATORY: Absent: cough, shortness of breath, dyspnea with exertion, orthopnea, wheezing, stridor, hemoptysis GASTROINTESTINAL: Absent: abdominal pain, abdominal distension, nausea, vomiting, diarrhea, constipation, melena, hematochezia GENITOURINARY: Absent: dysuria, frequency, urgency, hesitancy, hematuria, flank pain, genital pain MUSCULOSKELETAL: Present: arthralgia, myalgia Absent: myalgia, arthralgia, joint swelling, back pain, neck pain SKIN: Absent: rash, itching, pallor HEMATOLOGIC/IMMUNOLOGIC: Absent: easy bleeding, easy bruising, lymphadenopathy, frequent infections ENDOCRINE: Absent: unexplained weight gain, unexplained weight loss, heat intolerance, cold intolerance NEUROLOGIC: Absent: headache, focal weakness or paresthesias, dizziness, unsteady gait, seizure, mental status changes, bladder or bowel incontinence PSYCHIATRIC: Absent: anxiety, depression, suicidal or homicidal ideation, hallucinations. Allergies Penicillins Allergy (Verified 09/04/19 07:23) HOME MEDICATIONS: Home Medications Medication Instructions Recorded Atorvastatin Ca [Lipitor] 10 mg PO HS 09/04/19 Carbidopa/Levodopa 1 each PO BID 09/04/19 [Carbidopa-Levodopa 25-100 Tab] Clopidogrel Bisulfate [Clopidogrel] 75 mg PO DAILY 09/04/19 Finasteride [Proscar -] 5 mg PO DAILY 09/04/19 Fluticasone/Umeclidin/Vilanter 1 each IH DAILY 09/04/19 [Trelegy Ellipta 100-62.5-25] Metoprolol Succinate [Toprol Xl] 100 mg PO DAILY 09/04/19 Ramipril [Altace] 5 mg PO DAILY 09/04/19 Sulfamethoxazole/Trimethoprim 1 each PO BID #20 tablet 09/04/19 [Bactrim Ds Tablet] Tamsulosin HCl [Flomax] 0.4 mg PO DAILY 09/04/19 Active Medications Atorvastatin Calcium (Lipitor -) 10 mg PO HS [facility] Last Admin: 10/11/19 23:02 Dose: 10 mg Documented by: Carbidopa/Levodopa (Sinemet 25/100 -) 1 each PO TID [facility] Last Admin: 10/12/19 06:30 Dose: 1 each Documented by: Finasteride (Proscar -) 5 mg PO DAILY [facility] Sodium Chloride (Normal Saline -) 1,000 mls @ 75 mls/hr IV ASDIR [facility] Last Admin: 10/11/19 14:07 Dose: 75 mls/hr Documented by: Metoprolol Succinate (Toprol Xl -) 100 mg PO DAILY [facility] Ramipril (Altace -) 5 mg PO DAILY [facility] Tamsulosin HCl (Flomax -) 0.4 mg PO DAILY@0830 [facility] Last Admin: 10/12/19 08:47 Dose: 0.4 mg Documented by: Tramadol HCl (Ultram -) 25 mg PO Q6H PRN PRN Reason: PAIN LEVEL 4 - 6 Last Admin: 10/11/19 23:02 Dose: 25 mg Documented by: PHYSICAL EXAMINATION Vital Signs Period Temp Pulse Resp BP Sys/Amanda Pulse Ox Last 24 Hr 98.1 F-98.8 F 72-123 18-18 91-115/57-69 95-100 GENERAL: Awake, alert, in slight acute distress HEAD: Normal with no signs of trauma. EYES: PEERLA; EOMI; no scleral icterus . NECK: +chin injury s/p lac repair LUNGS: CTA B/L; no rales, rhonch or wheezing. HEART: Regular rate and rhythm, normal S1 and S2 without murmur, rub or gallop. ABDOMEN: Soft, soft; NT/ND +BS in all 4 quadrants; + tenderness on b/l ribs MUSCULOSKELETAL: slight decreased ROM on right LE ; UPPER EXTREMITIES:b/l hematomas on b/l elbows LOWER EXTREMITIES: Right knee hematoma with slight swelling; warm; well-perfused no clubbing/cyanosis or edema . NEUROLOGICAL: Cranial nerves II-XII intact. Normal speech. Normal gait. SKIN: Warm, dry, bruising B/L elbows and knees CBCD WBC 10.7 K/mm3 (4.0-10.0) H 10/12/19 06:10 RBC 3.34 M/mm3 (4.00-5.60) L 10/12/19 06:10 Hgb 10.4 GM/dL (11.7-16.9) L 10/12/19 06:10 Hct 30.1 % (35.4-49) L 10/12/19 06:10 MCV 90.1 fl (80-96) 10/12/19 06:10 MCHC 34.4 g/dl (32.0-35.9) 10/12/19 06:10 RDW 13.6 % (11.9-15.9) 10/12/19 06:10 Plt Count 434 K/MM3 (134-434) 10/12/19 06:10 MPV 7.0 fl (7.5-11.1) L 10/12/19 06:10 CMP Sodium 141 mmol/L (136-145) 10/12/19 06:10 Potassium 4.0 mmol/L (3.5-5.1) 10/12/19 06:10 Chloride 106 mmol/L (98-107) 10/12/19 06:10 Carbon Dioxide 27 mmol/L (21-32) 10/12/19 06:10 Anion Gap 8 MMOL/L (8-16) 10/12/19 06:10 BUN 21.8 mg/dL (7-18) H 10/12/19 06:10 Creatinine 0.8 mg/dL (0.55-1.3) 10/12/19 06:10 Random Glucose 142 mg/dL (74-106) H 10/12/19 06:10 Calcium 8.1 mg/dL (8.5-10.1) L 10/12/19 06:10 Total Bilirubin 1.0 mg/dL (0.2-1) 10/12/19 06:10 AST 18 U/L (15-37) 10/12/19 06:10 ALT < 6 U/L (13-61) L 10/12/19 06:10 Alkaline Phosphatase 102 U/L (45-117) 10/12/19 06:10 Total Protein 5.5 g/dl (6.4-8.2) L 10/12/19 06:10 Albumin 2.7 g/dl (3.4-5.0) L 10/12/19 06:10 CARDIAC ENZYMES Creatine Kinase 694 U/L (26-308) H 10/11/19 18:12 Troponin I < 0.02 ng/ml (0.00-0.05) 10/11/19 18:12 ASSESSMENT/PLAN: 74 y/o tajik speaking male with PMH of CAD s/p stents (on plavix), BPH, HTN , COPD, parkinsons presented to the ED s/p fall- as per the and him he was going to the bathroom on morning of admission when he tripped and fell (patient is unsteady at baseline 2/2 parkinsons and uses a cane sporadically) forward injuring his chi, b/l knees, elbows, and rib so he came here; he denied hitting his head- denied any headaches/dizziness/chest pain- as per the he does have frequent falls ; denied any cough/recent travel or sick contacts. CT of Cervical spine reviewed and showed no acute fracture. Multilevel degenerative changes. Head CT performed and demonstrated no acute pathology. Repeated Head CT also reviewed and demonstrated no acute pathology. He is calm and comfortable this morning, remains on Sinemet 25/100, 3 times a day and does have bradykinesia with [id number] cogwheeling. He may benefit from a slightly increased dose of Sinemet and would advise increasing to 4 times a day. May also require short-term rehabilitation and physical therapy to help with gait and ambulation if patient and family agreeable. Fall precautions recommended, assistive (cane vs walker) device. Monitor blood pressure, maintain normotensive range, strict avoidance of head trauma much as possible.
[2019-10-12] MEDS: RAMIPRIL 5 MG CAPSULE (FP) PO SCH (10:00)
[2019-10-12] MEDS: FINASTERIDE 5 MG TABLET (FP) PO SCH (10:00)
--- NOTE | 2019-10-12 15:19 | PN ---
Progress Note, Physician History of Present Illness: 74yo man (andrae Colindres), with PMH of Parkinson's, COPD, CAD s/p 3 stents, HTN, hyperlipidemia, indwelling Alanis catheter, BPH, now presenting with s/p fall this morning in the bathroom. Reports pain and bleeding over the chin. Denies dizziness or heart palpitations prior to fall. Denies vision changes or LOC. At home, uses a walker. Denies chest pain/shortness of breath. Denies abdominal pain. Denies lower extremity swelling. Denies fever/chills. - Current Medication List Current Medications: Active Medications Atorvastatin Calcium (Lipitor -) 10 mg PO HS [facility] Last Admin: 10/11/19 23:02 Dose: 10 mg Documented by: Carbidopa/Levodopa (Sinemet 25/100 -) 1 each PO QID [facility] Last Admin: 10/12/19 10:00 Dose: 1 each Documented by: Finasteride (Proscar -) 5 mg PO DAILY [facility] Last Admin: 10/12/19 10:00 Dose: 5 mg Documented by: Sodium Chloride (Normal Saline -) 1,000 mls @ 75 mls/hr IV ASDIR [facility] Last Admin: 10/11/19 14:07 Dose: 75 mls/hr Documented by: Metoprolol Succinate (Toprol Xl -) 100 mg PO DAILY [facility] Last Admin: 10/12/19 10:16 Dose: Not Given Documented by: Ramipril (Altace -) 5 mg PO DAILY [facility] Last Admin: 10/12/19 10:00 Dose: 5 mg Documented by: Tamsulosin HCl (Flomax -) 0.4 mg PO DAILY@0830 [facility] Last Admin: 10/12/19 08:47 Dose: 0.4 mg Documented by: Tramadol HCl (Ultram -) 25 mg PO Q6H PRN PRN Reason: PAIN LEVEL 4 - 6 Last Admin: 10/11/19 23:02 Dose: 25 mg Documented by: - Objective Vital Signs: Vital Signs Temperature 97.7 F 10/12/19 14:23 Pulse Rate 96 H 10/12/19 14:23 Respiratory Rate 18 10/12/19 14:23 Blood Pressure 136/82 10/12/19 14:23 O2 Sat by Pulse Oximetry (%) 98 10/12/19 14:23 Eyes: Yes: WNL, Conjunctiva Clear, EOM Intact HENT: Yes: WNL, Atraumatic, Normocephalic Neck: Yes: WNL, Supple, Trachea Midline Cardiovascular: Yes: WNL, Regular Rate and Rhythm Respiratory: Yes: WNL, Regular, CTA Bilaterally Gastrointestinal: Yes: WNL, Normal Bowel Sounds Genitourinary: Yes: WNL Musculoskeletal: Yes: WNL Extremities: Yes: WNL Edema: No Integumentary: Yes: WNL Neurological: Yes: WNL, Alert, Oriented ...Motor Strength: WNL Psychiatric: Yes: WNL Labs: CBC, BMP 10/12/19 06:10 10/12/19 06:10 INR, PTT INR 1.06 (0.83-1.09) 10/12/19 06:10 Assessment/Plan - Problems (1) Hyperlipidemia Assessment/Plan: f/u lipid profile Code(s): E78.5 - HYPERLIPIDEMIA, UNSPECIFIED (2) BPH (benign prostatic hyperplasia) Assessment/Plan: f/u with urologist. Code(s): N40.0 - BENIGN PROSTATIC HYPERPLASIA WITHOUT LOWER URINRY TRACT SYMP (3) CAD (coronary artery disease) Assessment/Plan: Hx CAD-->PCI. TNI < 0.02 x 2 . EKG sinus tachycardia; ill-defined density in right mid-field (CXR). ECHO (technically difficult study): normal LVEF. F/u prior cardiac workup; hx coronary stents. F/u lipid profile. Code(s): I25.10 - ATHSCL HEART DISEASE OF [place] CORONARY ARTERY W/O ANG PCTRS (4) Fall Assessment/Plan: Hx Parkinson's; uses walker at home. R/o syncope. Orthostatic VS. Avoid dehydration. ECHO: normal LVEF. F/u carotid artery US. Code(s): W19.XXXA - UNSPECIFIED FALL, INITIAL ENCOUNTER (5) HTN (hypertension) Code(s): I10 - ESSENTIAL (PRIMARY) HYPERTENSION (6) Parkinsons Assessment/Plan: On levo/carbidopa. Code(s): G20 - PARKINSON'S DISEASE (7) Problem with urinary catheter Code(s): T83.9XXA - UNSP COMPLICATION OF GENITOURINARY PROSTH DEV/GRFT, INIT (8) Urinary retention Code(s): R33.9 - RETENTION OF URINE, UNSPECIFIED (9) Hyperglycemia Assessment/Plan: F/u fasting glucose; HGBA1c. Code(s): R73.9 - HYPERGLYCEMIA, UNSPECIFIED (10) Sinus tachycardia Assessment/Plan: Multiple factors may be contributing to this, including pain, anemia, anxiety. CXR: "ill-defined right mid-lung field density"; f/u, and consider r/o of PE, though normal O2 sat on RA. Code(s): R00.0 - TACHYCARDIA, UNSPECIFIED (11) Anemia Assessment/Plan: mild decrease in Hb this admission. Code(s): D64.9 - ANEMIA, UNSPECIFIED
[2019-10-12] MEDS: SODIUM CHLORIDE 1,000 ML IV SCH (16:22)
--- NOTE | 2019-10-12 16:27 | PN ---
Physical Exam: SUBJECTIVE: Patient seen and examined OBJECTIVE: Vital Signs Period Temp Pulse Resp BP Sys/Amanda Pulse Ox Last 24 Hr 97.6 F-98.8 F 60-123 18-26 91-138/57-82 92-100 GENERAL: The patient is awake, alert, and fully oriented, in no acute distress. HEAD: Normal with no signs of trauma. EYES: PERRL, extraocular movements intact, sclera anicteric, conjunctiva clear. No ptosis. ENT: Ears normal, nares patent, oropharynx clear without exudates, moist mucous membranes. NECK: Trachea midline, full range of motion, supple. LUNGS: Breath sounds equal, clear to auscultation bilaterally, no wheezes, no crackles, no accessory muscle use. HEART: Regular rate and rhythm, S1, S2 without murmur, rub or gallop. ABDOMEN: Soft, nontender, nondistended, normoactive bowel sounds, no guarding, no rebound, no hepatosplenomegaly, no masses. EXTREMITIES: 2+ pulses, warm, well-perfused, no edema. NEUROLOGICAL: Cranial nerves II through XII grossly intact. Normal speech, gait not observed. PSYCH: Normal mood, normal affect. SKIN: Warm, dry, normal turgor, no rashes or lesions noted Laboratory Results - last 24 hr 10/11/19 10/11/19 10/12/19 18:12 18:12 06:10 WBC 15.8 H 10.7 H RBC 3.80 L 3.34 L Hgb 11.5 L 10.4 L Hct 34.5 L 30.1 L MCV 90.8 90.1 MCH 30.3 31.0 MCHC 33.4 34.4 RDW 13.6 13.6 Plt Count 464 H 434 MPV 6.9 L 7.0 L Absolute Neuts (auto) 8.2 H Neutrophils % 77.2 Lymphocytes % 13.4 D Monocytes % 7.7 Eosinophils % 0.9 D Basophils % 0.8 Nucleated RBC % 0 PT with INR INR PTT (Actin FS) Sodium Potassium Chloride Carbon Dioxide Anion Gap BUN Creatinine Est GFR (CKD-EPI)AfAm Est GFR (CKD-EPI)NonAf Random Glucose Calcium Phosphorus Magnesium Total Bilirubin AST ALT Alkaline Phosphatase Creatine Kinase 694 H Creatine Kinase Index 0.3 CK-MB (CK-2) 2.7 Troponin I < 0.02 Total Protein Albumin Triglycerides Cholesterol Total LDL Cholesterol HDL Cholesterol 10/12/19 10/12/19 06:10 06:10 WBC RBC Hgb Hct MCV MCH MCHC RDW Plt Count MPV Absolute Neuts (auto) Neutrophils % Lymphocytes % Monocytes % Eosinophils % Basophils % Nucleated RBC % PT with INR 12.50 INR 1.06 PTT (Actin FS) 27.7 Sodium 141 Potassium 4.0 Chloride 106 Carbon Dioxide 27 Anion Gap 8 BUN 21.8 H Creatinine 0.8 Est GFR (CKD-EPI)AfAm 102.71 Est GFR (CKD-EPI)NonAf 88.62 Random Glucose 142 H Calcium 8.1 L Phosphorus 2.4 L Magnesium 2.2 Total Bilirubin 1.0 AST 18 ALT < 6 L Alkaline Phosphatase 102 Creatine Kinase Creatine Kinase Index CK-MB (CK-2) Troponin I Total Protein 5.5 L Albumin 2.7 L Triglycerides 91 Cholesterol 146 Total LDL Cholesterol 78 HDL Cholesterol 57 Active Medications Generic Name Dose Route Start Last Admin Trade Name Freq PRN Reason Stop Dose Admin Atorvastatin Calcium 10 mg 10/11/19 22:00 10/11/19 23:02 Lipitor - PO 10 mg HS GIRISH Administration Carbidopa/Levodopa 1 each 10/12/19 10:00 10/12/19 10:00 Sinemet 25/100 - PO 1 each QID GIRISH Administration Finasteride 5 mg 10/12/19 10:00 10/12/19 10:00 Proscar - PO 5 mg DAILY GIRISH Administration Sodium Chloride 1,000 mls @ 75 mls/hr 10/11/19 13:15 10/12/19 16:22 Normal Saline - IV 75 mls/hr ASDIR GIRISH Administration Metoprolol Succinate 100 mg 10/12/19 10:00 10/12/19 10:16 Toprol Xl - PO Not Given DAILY GIRISH Ramipril 5 mg 10/12/19 10:00 10/12/19 10:00 Altace - PO 5 mg DAILY GIRISH Administration Tamsulosin HCl 0.4 mg 10/12/19 08:30 10/12/19 08:47 Flomax - PO 0.4 mg DAILY@0830 GIRISH Administration Tramadol HCl 25 mg 10/11/19 14:17 10/11/19 23:02 Ultram - PO 25 mg Q6H PRN Administration PAIN LEVEL 4 - 6 ASSESSMENT/PLAN: ATTENDING PHYSICIAN STATEMENT I saw and evaluated the patient. I reviewed the resident's note and discussed the case with the resident. I agree with the resident's findings and plan as documented. SUBJECTIVE: OBJECTIVE: ASSESSMENT AND PLAN:
--- NOTE | 2019-10-12 18:03 | PN ---
Teaching Attending Note Name of Resident: Graham Amaya ATTENDING PHYSICIAN STATEMENT I saw and evaluated the patient. I reviewed the resident's note and discussed the case with the resident. I agree with the resident's findings and plan as documented. SUBJECTIVE: Feels well - no complaints. Reports falling. No clear history of loss of consciousness. No preceding CP/palpitations. History obtained with use of historic interpreter over phone. OBJECTIVE: Afebrile, Hemodynamically stable. Last Vital Signs Temp Pulse Resp BP Pulse Ox 98 F 90 18 138/70 98 10/12/19 15:37 10/12/19 15:37 10/12/19 15:37 10/12/19 15:37 10/12/19 15:37 HEENT - Large laceration over chin with ecchymosis Heart - S1, S2, RRR Lungs - clear to auscultation Abdomen - Soft, non-tender. Bowel Sounds normal. Extremities - bruising U and L extremities. No edema, no calf tenderness. Neuro - AAOx 3. Power normal. Cogwheeling. Laboratory Results - last 24 hr 10/11/19 10/11/19 10/12/19 18:12 18:12 06:10 WBC 15.8 H 10.7 H RBC 3.80 L 3.34 L Hgb 11.5 L 10.4 L Hct 34.5 L 30.1 L MCV 90.8 90.1 MCH 30.3 31.0 MCHC 33.4 34.4 RDW 13.6 13.6 Plt Count 464 H 434 MPV 6.9 L 7.0 L Absolute Neuts (auto) 8.2 H Neutrophils % 77.2 Lymphocytes % 13.4 D Monocytes % 7.7 Eosinophils % 0.9 D Basophils % 0.8 Nucleated RBC % 0 PT with INR INR PTT (Actin FS) Sodium Potassium Chloride Carbon Dioxide Anion Gap BUN Creatinine Est GFR (CKD-EPI)AfAm Est GFR (CKD-EPI)NonAf Random Glucose Calcium Phosphorus Magnesium Total Bilirubin AST ALT Alkaline Phosphatase Creatine Kinase 694 H Creatine Kinase Index 0.3 CK-MB (CK-2) 2.7 Troponin I < 0.02 Total Protein Albumin Triglycerides Cholesterol Total LDL Cholesterol HDL Cholesterol 10/12/19 10/12/19 06:10 06:10 WBC RBC Hgb Hct MCV MCH MCHC RDW Plt Count MPV Absolute Neuts (auto) Neutrophils % Lymphocytes % Monocytes % Eosinophils % Basophils % Nucleated RBC % PT with INR 12.50 INR 1.06 PTT (Actin FS) 27.7 Sodium 141 Potassium 4.0 Chloride 106 Carbon Dioxide 27 Anion Gap 8 BUN 21.8 H Creatinine 0.8 Est GFR (CKD-EPI)AfAm 102.71 Est GFR (CKD-EPI)NonAf 88.62 Random Glucose 142 H Calcium 8.1 L Phosphorus 2.4 L Magnesium 2.2 Total Bilirubin 1.0 AST 18 ALT < 6 L Alkaline Phosphatase 102 Creatine Kinase Creatine Kinase Index CK-MB (CK-2) Troponin I Total Protein 5.5 L Albumin 2.7 L Triglycerides 91 Cholesterol 146 Total LDL Cholesterol 78 HDL Cholesterol 57 Current Medications Generic Name Dose Route Start Last Admin Trade Name Freq PRN Reason Stop Dose Admin Atorvastatin Calcium 10 mg 10/11/19 22:00 10/11/19 23:02 Lipitor - PO 10 mg HS GIRISH Administration Carbidopa/Levodopa 1 each 10/12/19 10:00 10/12/19 15:25 Sinemet 25/100 - PO Not Given QID GIRISH Finasteride 5 mg 10/12/19 10:00 10/12/19 10:00 Proscar - PO 5 mg DAILY GIRISH Administration Sodium Chloride 1,000 mls @ 75 mls/hr 10/11/19 13:15 10/12/19 16:22 Normal Saline - IV 75 mls/hr ASDIR GIRISH Administration Metoprolol Succinate 100 mg 10/12/19 10:00 10/12/19 10:16 Toprol Xl - PO Not Given DAILY GIRISH Ramipril 5 mg 10/12/19 10:00 10/12/19 10:00 Altace - PO 5 mg DAILY GIRISH Administration Tamsulosin HCl 0.4 mg 10/12/19 08:30 10/12/19 08:47 Flomax - PO 0.4 mg DAILY@0830 GIRISH Administration Tramadol HCl 25 mg 10/11/19 14:17 10/11/19 23:02 Ultram - PO 25 mg Q6H PRN Administration PAIN LEVEL 4 - 6 Home Medications Medication Instructions Recorded Atorvastatin Ca [Lipitor] 10 mg PO HS 09/04/19 Carbidopa/Levodopa 1 each PO TID 09/04/19 [Carbidopa-Levodopa 25-100 Tab] Clopidogrel Bisulfate [Clopidogrel] 75 mg PO DAILY 09/04/19 Finasteride [Proscar -] 5 mg PO DAILY 09/04/19 Fluticasone/Umeclidin/Vilanter 1 each IH DAILY 09/04/19 [Trelegy Ellipta 100-62.5-25] Metoprolol Succinate [Toprol Xl] 100 mg PO DAILY 09/04/19 Ramipril [Altace] 5 mg PO DAILY 09/04/19 Tamsulosin HCl [Flomax] 0.4 mg PO DAILY 09/04/19 ASSESSMENT/PLAN 74 year old Kinyarwanda speaking male with history of CAD s/p PCI/stents x3, multiple falls in the past, BPH, HTN , Parkinson's Disease, COPD, not on O2 presents to the ED with laceration to chin s/p fall. 1. Head trauma s/p fall s/p Bio-glue to chin CT Head neg x 2. Echo - normal Carotid Duplex - intimal thickening without hemodynamically significant stenosis. No fractures on trauma series. Evaluated by cardiology - no further work-up required. PT, may need placement. 2. Parkinson's Disease Seen by Neurology- recommended for increase in Carbidopa/Levodopa to 4 times daily. May need placement for decreasing mobility/ambulatory dysfunction. 3. HTN - resumed on Metoprolol and Ramipril. 4. CAD s/p PCI/Stent x 3. Continue Plavix, BB, SOLEDAD-I. Statin held due to rising CPK, will monitor. 5. BPH - Continue Flomax, Proscar. 6. COPD/?ILD - Stable. Not in acute exacerbation. DuoNebs PRN. CT Chest pending. 7. Thickened Bladder Wall and large prostate on CT - asymptomatic. Urine Cx requested. Urology follow up on discharge. 8. RML Lung density on CXR - will request CT Chest. 9. Hypophosphatemia - repleted DVT Px- Heparin SQ.
[2019-10-12] MEDS ORDERED: SODIUM CHLORIDE 1,000 ML IV SCH (18:05)
[2019-10-12] MEDS ORDERED: POTASSIUM PHOSPHATE 15 MM in DEXTROSE 5%-WATER - 250 ML IVPB ONE (19:00)
--- NOTE | 2019-10-12 20:10 | PN ---
Physical Exam: SUBJECTIVE: Patient seen and examined. Spoke with patient using [employer] interpretor. Patient denied headache, chest pain, loss of consciousness, d izziness, pain. Later spoke with patient and patient's and recommended SNF for rehab, patient agreeable to short term rehab. OBJECTIVE: Vital Signs Period Temp Pulse Resp BP Sys/Amanda Pulse Ox Last 24 Hr 97.6 F-98.6 F 60-100 18-26 91-138/57-82 92-100 GENERAL: The patient is awake, alert, and fully oriented, in no acute distress. HEAD: Normal with no signs of trauma. healing laceration on chin, sutures in place. EYES: PERRL, EOMI ENT: MMM NECK: Trachea midline, full range of motion, supple LUNGS: Breath sounds equal, clear to auscultation bilaterally, no wheezes, no crackles, no accessory muscle use. HEART: Regular rate and rhythm, S1, S2 without murmur, rub or gallop. ABDOMEN: Soft, nontender, nondistended, normoactive bowel sounds, no guarding EXTREMITIES: 2+ pulses, warm, well-perfused, no edema. NEUROLOGICAL: Normal speech, gait not observed. PSYCH: Normal mood, normal affect. SKIN: Warm, dry, multiple healing bruises on bilateral legs and arms Laboratory Results - last 24 hr 10/12/19 10/12/19 10/12/19 06:10 06:10 06:10 WBC 10.7 H RBC 3.34 L Hgb 10.4 L Hct 30.1 L MCV 90.1 MCH 31.0 MCHC 34.4 RDW 13.6 Plt Count 434 MPV 7.0 L Absolute Neuts (auto) 8.2 H Neutrophils % 77.2 Lymphocytes % 13.4 D Monocytes % 7.7 Eosinophils % 0.9 D Basophils % 0.8 Nucleated RBC % 0 PT with INR 12.50 INR 1.06 PTT (Actin FS) 27.7 Sodium 141 Potassium 4.0 Chloride 106 Carbon Dioxide 27 Anion Gap 8 BUN 21.8 H Creatinine 0.8 Est GFR (CKD-EPI)AfAm 102.71 Est GFR (CKD-EPI)NonAf 88.62 Random Glucose 142 H Calcium 8.1 L Phosphorus 2.4 L Magnesium 2.2 Total Bilirubin 1.0 AST 18 ALT < 6 L Alkaline Phosphatase 102 Total Protein 5.5 L Albumin 2.7 L Triglycerides 91 Cholesterol 146 Total LDL Cholesterol 78 HDL Cholesterol 57 Active Medications Generic Name Dose Route Start Last Admin Trade Name Freq PRN Reason Stop Dose Admin Atorvastatin Calcium 10 mg 10/11/19 22:00 10/11/19 23:02 Lipitor - PO 10 mg HS GIRISH Administration Carbidopa/Levodopa 1 each 10/12/19 10:00 10/12/19 15:25 Sinemet 25/100 - PO Not Given QID GIRISH Finasteride 5 mg 10/12/19 10:00 10/12/19 10:00 Proscar - PO 5 mg DAILY GIRISH Administration Heparin Sodium (Porcine) 5,000 unit 10/12/19 22:00 Heparin - SQ BID GIRISH Potassium Phosphate 15 mm/ 255 mls @ 42.5 mls/hr 10/12/19 19:00 Dextrose IVPB 10/13/19 00:59 ONCE ONE Sodium Chloride 1,000 mls @ 75 mls/hr 10/12/19 18:05 Normal Saline - IV ASDIR GIRISH Metoprolol Succinate 100 mg 10/12/19 10:00 10/12/19 10:16 Toprol Xl - PO Not Given DAILY GIRISH Ramipril 5 mg 10/12/19 10:00 10/12/19 10:00 Altace - PO 5 mg DAILY GIRISH Administration Tamsulosin HCl 0.4 mg 10/12/19 08:30 10/12/19 08:47 Flomax - PO 0.4 mg DAILY@0830 GIRISH Administration Tramadol HCl 25 mg 10/11/19 14:17 10/11/19 23:02 Ultram - PO 25 mg Q6H PRN Administration PAIN LEVEL 4 - 6 ASSESSMENT/PLAN: 74 y/o greek speaking male male with PMH of CAD s/p stents (on plavix), BPH, HTN , parkinsons, COPD presents to the ED s/p fall #S/P Fall - likely 2/2 mechanical fall however cannot rule out syncope - current imaging negative thus far - ab/pelvis CT without evidence of bleeding or acute pathology - BL rib xray without evidence of acute fracture - IVF - Cardiology consulted - Dr. Luna - holding AC as patient is a repeat fall risk, appreciate Cardiology input regarding holding AC - repeat head CT negative for acute pathology - patient failed PT eval, open to short term rehab, SW aware - CK uptrending, continue to monitor #HTN - c/w toprol and ramipril - monitor hemodynamics #CAD - holding plavix until cleared by cardio #BPH - c/w finasteride and flomax #Parkinsons - c/w sinemet - Neurology consulted (Dr. Mcallister) - recommended increasing Sinemet to QID #COPD - not currently in exacerbation - patient uses brio ellipta at home - albuterol PRN #FEN - NS @75 - monitor electrolytes - sodium controlled diet #Prophylaxis - SCDs #Disposition - Patient open to going to SNF for short term rehab, SW aware Visit type - Emergency Visit Emergency Visit: Yes ED Registration Date: 10/11/19 Care time: The patient presented to the Emergency Department on the above date and was hospitalized for further evaluation of their emergent condition. - New Patient This patient is new to me today: Yes Date on this admission: 10/12/19 - Critical Care Critical Care patient: No ATTENDING PHYSICIAN STATEMENT I saw and evaluated the patient. I reviewed the resident's note and discussed the case with the resident. I agree with the resident's findings and plan as documented. SUBJECTIVE: OBJECTIVE: ASSESSMENT AND PLAN:
[2019-10-12] MEDS: HEPARIN NA (PORCINE) 5,000 UNITS/ML 1ML VIAL SQ SCH (21:34)
[2019-10-12] MEDS: ATORVASTATIN CA 10 MG TABLET (FP) PO SCH (21:34)
[2019-10-13 02:35] LABS: EPI CELLS 0.1 /HPF (0-5/HPF); HYALINE CASTS 2 /lpf (0-8); PH,URINE 6.5 (5.0-8.0); URINE APPEARANCE CLOUDY; URINE BACTERIA 3866.1 /hpf (NEGATIVE); URINE BILIRUBIN NEGATIVE (NEGATIVE); URINE COLOR YELLOW; URINE GLUCOSE (UA) NEGATIVE (NEGATIVE); URINE KETONE TRACE (NEGATIVE); URINE LEUK ESTERASE 2+ (NEGATIVE); URINE NITRITE NEGATIVE (NEGATIVE); URINE PROTEIN 1+ (NEGATIVE); URINE RBC 40 /hpf (0-4); URINE WBC 197 /hpf (0-5)
[2019-10-13 07:26] LABS: HEMATOCRIT 31.7 % (35.4-49); HEMOGLOBIN 10.8 GM/dL (11.7-16.9); MCH 30.9 pg (25.7-33.7); MEAN CELL VOLUME 90.8 fl (80-96); MEAN PLT VOLUME 6.9 fl (7.5-11.1); PLATELET COUNT 455 K/MM3 (134-434); RBC 3.49 M/mm3 (4.00-5.60); RDW 13.3 % (11.9-15.9); WHITE BLOOD COUNT 11.8 K/mm3 (4.0-10.0)
--- NOTE | 2019-10-13 08:37 | PN ---
Progress Note (short form) - Note Progress Note: Neurology CHIEF COMPLAINT: s/p fall PCP: Dr. Araiza HISTORY OF PRESENT ILLNESS: 74 y/o tajik speaking male with PMH of CAD s/p stents (on plavix), BPH, HTN , COPD, parkinsons presented to the ED s/p fall- as per the and him he was going to the bathroom on morning of admission when he tripped and fell (patient is unsteady at baseline 2/2 parkinsons and uses a cane sporadically) forward injuring his chi, b/l knees, elbows, and rib so he came here; he denied hitting his head- denied any headaches/dizziness/chest pain- as per the he does have frequent falls ; denied any cough/recent travel or sick contacts. CT of Cervical spine reviewed and showed no acute fracture. Multilevel degenerative changes. Head CT performed and demonstrated no acute pathology. Repeated Head CT also reviewed and demonstrated no acute pathology. He is calm and comfortable this morning, remains on Sinemet 25/100, 3 times a day and does have bradykinesia with [id number] cogwheeling. He may benefit from a slightly increased dose of Sinemet and I increased to 4 times a day. May also require short-term rehabilitation and physical therapy to help with gait and ambulation if patient and family agreeable. He is well appearing this and appears to be at or near baseline withgood movements and without complaints. ould continue four- time a day dosing of the Sinemet for now. Active Medications Atorvastatin Calcium (Lipitor -) 10 mg PO HS COUNTS INCLUDE 234 BEDS AT THE [facility] Last Admin: 10/12/19 21:34 Dose: 10 mg Documented by: Carbidopa/Levodopa (Sinemet 25/100 -) 1 each PO QID COUNTS INCLUDE 234 BEDS AT THE [facility] Last Admin: 10/12/19 21:34 Dose: Not Given Documented by: Finasteride (Proscar -) 5 mg PO DAILY COUNTS INCLUDE 234 BEDS AT THE [facility] Last Admin: 10/12/19 10:00 Dose: 5 mg Documented by: Heparin Sodium (Porcine) (Heparin -) 5,000 unit SQ BID COUNTS INCLUDE 234 BEDS AT THE [facility] Last Admin: 10/12/19 21:34 Dose: 5,000 unit Documented by: Sodium Chloride (Normal Saline -) 1,000 mls @ 75 mls/hr IV ASDIR COUNTS INCLUDE 234 BEDS AT THE [facility] Last Admin: 10/12/19 20:23 Dose: 75 mls/hr Documented by: Metoprolol Succinate (Toprol Xl -) 100 mg PO DAILY COUNTS INCLUDE 234 BEDS AT THE [facility] Last Admin: 10/12/19 10:16 Dose: Not Given Documented by: Ramipril (Altace -) 5 mg PO DAILY COUNTS INCLUDE 234 BEDS AT THE [facility] Last Admin: 10/12/19 10:00 Dose: 5 mg Documented by: Tamsulosin HCl (Flomax -) 0.4 mg PO DAILY@0830 COUNTS INCLUDE 234 BEDS AT THE [facility] Last Admin: 10/12/19 08:47 Dose: 0.4 mg Documented by: Tramadol HCl (Ultram -) 25 mg PO Q6H PRN PRN Reason: PAIN LEVEL 4 - 6 Last Admin: 10/11/19 23:02 Dose: 25 mg Documented by: PHYSICAL EXAMINATION Vital Signs Period Temp Pulse Resp BP Sys/Amanda Pulse Ox Last 24 Hr 97.3 F-98.6 F 60-96 18-26 107-138/61-82 92-99 GENERAL: Awake, alert, in slight acute distress HEAD: Normal with no signs of trauma. EYES: PEERLA; EOMI; no scleral icterus . NECK: +chin injury s/p lac repair LUNGS: CTA B/L; no rales, rhonch or wheezing. HEART: Regular rate and rhythm, normal S1 and S2 without murmur, rub or gallop. ABDOMEN: Soft, soft; NT/ND +BS in all 4 quadrants; + tenderness on b/l ribs MUSCULOSKELETAL: slight decreased ROM on right LE ; UPPER EXTREMITIES:b/l hematomas on b/l elbows LOWER EXTREMITIES: Right knee hematoma with slight swelling; warm; well-perfused no clubbing/cyanosis or edema . NEUROLOGICAL: Cranial nerves II-XII intact. Normal speech. Normal gait. SKIN: Warm, dry, bruising B/L elbows and knees CBCD WBC 11.8 K/mm3 (4.0-10.0) H 10/13/19 06:15 RBC 3.49 M/mm3 (4.00-5.60) L 10/13/19 06:15 Hgb 10.8 GM/dL (11.7-16.9) L 10/13/19 06:15 Hct 31.7 % (35.4-49) L 10/13/19 06:15 MCV 90.8 fl (80-96) 10/13/19 06:15 MCHC 34.0 g/dl (32.0-35.9) 10/13/19 06:15 RDW 13.3 % (11.9-15.9) 10/13/19 06:15 Plt Count 455 K/MM3 (134-434) H 10/13/19 06:15 MPV 6.9 fl (7.5-11.1) L 10/13/19 06:15 CMP Sodium 141 mmol/L (136-145) 10/12/19 06:10 Potassium 4.0 mmol/L (3.5-5.1) 10/12/19 06:10 Chloride 106 mmol/L (98-107) 10/12/19 06:10 Carbon Dioxide 27 mmol/L (21-32) 10/12/19 06:10 Anion Gap 8 MMOL/L (8-16) 10/12/19 06:10 BUN 21.8 mg/dL (7-18) H 10/12/19 06:10 Creatinine 0.8 mg/dL (0.55-1.3) 10/12/19 06:10 Random Glucose 142 mg/dL (74-106) H 10/12/19 06:10 Calcium 8.1 mg/dL (8.5-10.1) L 10/12/19 06:10 Total Bilirubin 1.0 mg/dL (0.2-1) 10/12/19 06:10 AST 18 U/L (15-37) 10/12/19 06:10 ALT < 6 U/L (13-61) L 10/12/19 06:10 Alkaline Phosphatase 102 U/L (45-117) 10/12/19 06:10 Total Protein 5.5 g/dl (6.4-8.2) L 10/12/19 06:10 Albumin 2.7 g/dl (3.4-5.0) L 10/12/19 06:10 CARDIAC ENZYMES Creatine Kinase 694 U/L (26-308) H 10/11/19 18:12 Troponin I < 0.02 ng/ml (0.00-0.05) 10/11/19 18:12 ASSESSMENT/PLAN: 74 y/o tajik speaking male with PMH of CAD s/p stents (on plavix), BPH, HTN , COPD, parkinsons presented to the ED s/p fall- as per the and him he was going to the bathroom on morning of admission when he tripped and fell (patient is unsteady at baseline 2/2 parkinsons and uses a cane sporadically) forward injuring his chi, b/l knees, elbows, and rib so he came here; he denied hitting his head- denied any headaches/dizziness/chest pain- as per the he does have frequent falls ; denied any cough/recent travel or sick contacts. CT of Cervical spine reviewed and showed no acute fracture. Multilevel degenerative changes. Head CT performed and demonstrated no acute pathology. Repeated Head CT also reviewed and demonstrated no acute pathology. He is calm and comfortable this morning, remains on Sinemet 25/100, 3 times a day and does have bradykinesia with [id number] cogwheeling. He may benefit from a slightly increased dose of Sinemet and would advise increasing to 4 times a day. May also require short-term rehabilitation and physical therapy to help with gait and ambulation if patient and family agreeable. Fall precautions recommended, assistive (cane vs walker) device. Monitor blood pressure, maintain normotensive range, strict avoidance of head trauma much as possible. May also require short-term rehabilitation and physical therapy to help with gait and ambulation if patient and family agreeable. He is well appearing this and appears to be at or near baseline withgood movements and without complaints. Should continue four-time a day dosing of the Sinemet for now. Neurologically sstable at this time
[2019-10-13] MEDS: TAMSULOSIN HCL 0.4 MG CAP PO SCH (09:24)
[2019-10-13] MEDS: HEPARIN NA (PORCINE) 5,000 UNITS/ML 1ML VIAL SQ SCH ×2 (09:25→22:47)
[2019-10-13] MEDS: RAMIPRIL 5 MG CAPSULE (FP) PO SCH (09:25)
[2019-10-13] MEDS: FINASTERIDE 5 MG TABLET (FP) PO SCH (09:26)
[2019-10-13] MEDS: CARBIDOPA/LEVODOPA 25/100 TABLET (FP) PO SCH ×4 (09:26→22:47)
--- NOTE | 2019-10-13 10:14 | PN ---
Teaching Attending Note Name of Resident: Graham Amaya ATTENDING PHYSICIAN STATEMENT I saw and evaluated the patient. I reviewed the resident's note and discussed the case with the resident. I agree with the resident's findings and plan as documented. SUBJECTIVE: Feels well - no complaints. History obtained with use of overlock operator over phone. OBJECTIVE: Afebrile, Hemodynamically stable. Last Vital Signs Temp Pulse Resp BP Pulse Ox 97.3 F L 78 20 107/61 96 10/13/19 06:00 10/13/19 06:00 10/13/19 06:00 10/13/19 06:00 10/12/19 20:52 HEENT - Large laceration over chin with ecchymosis (closed in ED) Heart - S1, S2, RRR Lungs - clear to auscultation Abdomen - Soft, non-tender. Bowel Sounds normal. Extremities - bruising U and L extremities. No edema, no calf tenderness. Neuro - AAO x 3. Power normal. Cogwheeling. Laboratory Results - last 24 hr 10/13/19 10/13/19 00:45 06:15 WBC 11.8 H RBC 3.49 L Hgb 10.8 L Hct 31.7 L MCV 90.8 MCH 30.9 MCHC 34.0 RDW 13.3 Plt Count 455 H MPV 6.9 L Urine Color Yellow Urine Appearance Cloudy Urine pH 6.5 Ur Specific [place] 1.020 Urine Protein 1+ H Urine Glucose (UA) Negative Urine Ketones Trace H Urine Blood 2+ H Urine Nitrite Negative Urine Bilirubin Negative Urine Urobilinogen 1.0 Ur Leukocyte Esterase 2+ H Urine WBC (Auto) 197 Urine RBC (Auto) 40 Urine Casts (Auto) 2 U Epithel Cells (Auto) 0.1 Urine Bacteria (Auto) 3866.1 Current Medications Generic Name Dose Route Start Last Admin Trade Name Freq PRN Reason Stop Dose Admin Atorvastatin Calcium 10 mg 10/11/19 22:00 10/12/19 21:34 Lipitor - PO 10 mg HS GIRISH Administration Carbidopa/Levodopa 1 each 10/12/19 10:00 10/13/19 09:26 Sinemet 25/100 - PO 1 each QID GIRISH Administration Finasteride 5 mg 10/12/19 10:00 10/13/19 09:26 Proscar - PO 5 mg DAILY GIRISH Administration Heparin Sodium (Porcine) 5,000 unit 10/12/19 22:00 10/13/19 09:25 Heparin - SQ 5,000 unit BID GIRISH Administration Sodium Chloride 1,000 mls @ 75 mls/hr 10/12/19 18:05 10/12/19 20:23 Normal Saline - IV 75 mls/hr ASDIR GIRISH Administration Metoprolol Succinate 100 mg 10/12/19 10:00 10/13/19 09:26 Toprol Xl - PO 100 mg DAILY GIRISH Administration Ramipril 5 mg 10/12/19 10:00 10/13/19 09:25 Altace - PO 5 mg DAILY GIRISH Administration Tamsulosin HCl 0.4 mg 10/12/19 08:30 10/13/19 09:24 Flomax - PO 0.4 mg DAILY@0830 GIRISH Administration Tramadol HCl 25 mg 10/11/19 14:17 10/11/19 23:02 Ultram - PO 25 mg Q6H PRN Administration PAIN LEVEL 4 - 6 Home Medications Medication Instructions Recorded Atorvastatin Ca [Lipitor] 10 mg PO HS 09/04/19 Carbidopa/Levodopa 1 each PO TID 09/04/19 [Carbidopa-Levodopa 25-100 Tab] Clopidogrel Bisulfate [Clopidogrel] 75 mg PO DAILY 09/04/19 Finasteride [Proscar -] 5 mg PO DAILY 09/04/19 Fluticasone/Umeclidin/Vilanter 1 each IH DAILY 09/04/19 [Trelegy Ellipta 100-62.5-25] Metoprolol Succinate [Toprol Xl] 100 mg PO DAILY 09/04/19 Ramipril [Altace] 5 mg PO DAILY 09/04/19 Tamsulosin HCl [Flomax] 0.4 mg PO DAILY 09/04/19 ASSESSMENT/PLAN 74 year old Turkmen speaking male with history of CAD s/p PCI/stents x3, multiple falls in the past, BPH, HTN , Parkinson's Disease, COPD, not on O2 presents to the ED with laceration to chin s/p fall. 1. Head trauma s/p fall s/p closure of chin lac in ED CT Head neg x 2. Echo - normal Carotid Duplex - intimal thickening without hemodynamically significant stenosis. No fractures on trauma series. Evaluated by cardiology - no further work-up required. PT - needs placement due to unsteady gait and fall risk. 2. Parkinson's Disease Seen by Neurology - recommended for increase in Carbidopa/Levodopa to 4 times daily. Needs placement for decreasing mobility/ambulatory dysfunction. 3. HTN - resumed on Metoprolol and Ramipril. 4. CAD s/p PCI/Stent x 3. Continue Plavix, BB, SOLEDAD-I. Statin held due to rising CPK, will monitor. 5. BPH - Continue Flomax, Proscar. 6. COPD/?ILD - Stable. Not in acute exacerbation. DuoNebs PRN. CT Chest result pending. 7. Thickened Bladder Wall and large prostate on CT - asymptomatic. Urine Cx pending. Urology follow up on discharge. 8. RML Lung density on CXR - awaiting radiology report on CT Chest. 9. Hypophosphatemia - repleted DVT Px - Heparin SQ.
--- NOTE | 2019-10-13 10:24 | PN ---
Physical Exam: SUBJECTIVE: Patient seen and examined. Spoke with patient using [employer] interpretor #[id number]. Denies pain, states that he is doing ok. Ok with going to SNF. OBJECTIVE: Vital Signs Period Temp Pulse Resp BP Sys/Amanda Pulse Ox Last 24 Hr 97.3 F-98.6 F 60-96 18-26 107-138/61-82 92-98 GENERAL: The patient is awake, alert, and fully oriented, in no acute distress. HEAD: Normal with no signs of trauma. healing laceration on chin EYES: EOMI ENT: MMM NECK: Trachea midline, full range of motion, supple LUNGS: Breath sounds equal, clear to auscultation bilaterally, no wheezes, no crackles, no accessory muscle use. HEART: Regular rate and rhythm, S1, S2 without murmur, rub or gallop. ABDOMEN: Soft, nontender, nondistended, normoactive bowel sounds, no guarding EXTREMITIES: 2+ pulses, warm, well-perfused, no edema. Normal ROM of upper and lower extremities NEUROLOGICAL: Normal speech, gait not observed. PSYCH: Normal mood, normal affect. SKIN: Warm, dry, multiple healing bruises on bilateral legs and arms Laboratory Results - last 24 hr 10/13/19 10/13/19 00:45 06:15 WBC 11.8 H RBC 3.49 L Hgb 10.8 L Hct 31.7 L MCV 90.8 MCH 30.9 MCHC 34.0 RDW 13.3 Plt Count 455 H MPV 6.9 L Urine Color Yellow Urine Appearance Cloudy Urine pH 6.5 Ur Specific [place] 1.020 Urine Protein 1+ H Urine Glucose (UA) Negative Urine Ketones Trace H Urine Blood 2+ H Urine Nitrite Negative Urine Bilirubin Negative Urine Urobilinogen 1.0 Ur Leukocyte Esterase 2+ H Urine WBC (Auto) 197 Urine RBC (Auto) 40 Urine Casts (Auto) 2 U Epithel Cells (Auto) 0.1 Urine Bacteria (Auto) 3866.1 Active Medications Generic Name Dose Route Start Last Admin Trade Name Freq PRN Reason Stop Dose Admin Atorvastatin Calcium 10 mg 10/11/19 22:00 10/12/19 21:34 Lipitor - PO 10 mg HS GIRISH Administration Carbidopa/Levodopa 1 each 10/12/19 10:00 10/13/19 09:26 Sinemet 25/100 - PO 1 each QID [facility] Administration Finasteride 5 mg 10/12/19 10:00 10/13/19 09:26 Proscar - PO 5 mg DAILY G[facility] Administration Heparin Sodium (Porcine) 5,000 unit 10/12/19 22:00 10/13/19 09:25 Heparin - SQ 5,000 unit BID G[facility] Administration Sodium Chloride 1,000 mls @ 75 mls/hr 10/12/19 18:05 10/12/19 20:23 Normal Saline - IV 75 mls/hr ASDIR GIRISH Administration Metoprolol Succinate 100 mg 10/12/19 10:00 10/13/19 09:26 Toprol Xl - PO 100 mg DAILY G[facility] Administration Ramipril 5 mg 10/12/19 10:00 10/13/19 09:25 Altace - PO 5 mg DAILY [facility] Administration Tamsulosin HCl 0.4 mg 10/12/19 08:30 10/13/19 09:24 Flomax - PO 0.4 mg DAILY@0830 [facility] Administration Tramadol HCl 25 mg 10/11/19 14:17 10/11/19 23:02 Ultram - PO 25 mg Q6H PRN Administration PAIN LEVEL 4 - 6 ASSESSMENT/PLAN: 74 y/o malay speaking male male with PMH of CAD s/p stents (on plavix), BPH, HTN , parkinsons, COPD presents to the ED s/p fall #S/P Fall - likely 2/2 mechanical fall however cannot rule out syncope - current imaging negative thus far - ab/pelvis CT without evidence of bleeding or acute pathology - BL rib xray without evidence of acute fracture - discontinue IVF if CK improving - Cardiology consulted - Dr. Luna - holding AC as patient is a repeat fall risk, appreciate Cardiology input regarding holding AC - repeat head CT negative for acute pathology - patient failed PT eval, open to short term rehab, SW aware - CK uptrending, continue to monitor - Chest CT ordered for il defined density noted in right mid lung field on CXR #HTN - c/w toprol and ramipril - monitor hemodynamics #CAD - holding plavix until cleared by cardio #BPH - c/w finasteride and flomax #Parkinsons - c/w sinemet - Neurology consulted (Dr. Mcallister) - recommended increasing Sinemet to QID #COPD - not currently in exacerbation - patient uses brio ellipta at home - albuterol PRN #FEN - NS @75 - monitor electrolytes - sodium controlled diet #Prophylaxis - SCDs #Disposition - Patient open to going to SNF for short term rehab, SW aware. Needs 3 midnights for approval Visit type - Emergency Visit Emergency Visit: Yes ED Registration Date: 10/11/19 Care time: The patient presented to the Emergency Department on the above date and was hospitalized for further evaluation of their emergent condition. - New Patient This patient is new to me today: No - Critical Care Critical Care patient: No ATTENDING PHYSICIAN STATEMENT I saw and evaluated the patient. I reviewed the resident's note and discussed the case with the resident. I agree with the resident's findings and plan as documented. SUBJECTIVE: OBJECTIVE: ASSESSMENT AND PLAN:
[2019-10-13 10:37] LABS: BLOOD UREA NITROGEN 13.8 mg/dL (7-18); CALCIUM 7.8 mg/dL (8.5-10.1); CREATININE 0.7 mg/dL (0.55-1.3); PHOSPHOROUS 3.4 mg/dL (2.5-4.9); POTASSIUM 3.9 mmol/L (3.5-5.1)
[2019-10-13] MEDS ORDERED: PT OWN MED DRAWER 7, Y5N ONE ×2 (17:59→22:44)
[2019-10-13] MEDS: ATORVASTATIN CA 10 MG TABLET (FP) PO SCH (22:47)
[2019-10-14 07:50] LABS: HEMATOCRIT 30.4 % (35.4-49); HEMOGLOBIN 10.4 GM/dL (11.7-16.9); MCH 30.8 pg (25.7-33.7); MCHC 34.3 g/dl (32.0-35.9); MEAN CELL VOLUME 89.9 fl (80-96); MEAN PLT VOLUME 6.7 fl (7.5-11.1); PLATELET COUNT 493 K/MM3 (134-434); RBC 3.38 M/mm3 (4.00-5.60); RDW 13.5 % (11.9-15.9); WHITE BLOOD COUNT 10.7 K/mm3 (4.0-10.0)
--- NOTE | 2019-10-14 08:29 | PN ---
Progress Note, Physician Chief Complaint: Pt, with present, denies chest pain, dizziness, or dyspnea. History of Present Illness: 74yo man (andrae Colindres), with PMH of Parkinson's, COPD, CAD s/p 3 stents, HTN, hyperlipidemia, indwelling Alanis catheter, BPH, now presenting with s/p fall this morning in the bathroom. Reports pain and bleeding over the chin. Denies dizziness or heart palpitations prior to fall. Denies vision changes or LOC. At home, uses a walker. Denies chest pain/shortness of breath. Denies abdominal pain. Denies lower extremity swelling. Denies fever/chills. - Current Medication List Current Medications: Active Medications Atorvastatin Calcium (Lipitor -) 10 mg PO HS [facility] Last Admin: 10/13/19 22:47 Dose: 10 mg Documented by: Carbidopa/Levodopa (Sinemet 25/100 -) 1 each PO QID [facility] Last Admin: 10/13/19 22:47 Dose: 1 each Documented by: Finasteride (Proscar -) 5 mg PO DAILY [facility] Last Admin: 10/13/19 09:26 Dose: 5 mg Documented by: Heparin Sodium (Porcine) (Heparin -) 5,000 unit SQ BID [facility] Last Admin: 10/13/19 22:47 Dose: 5,000 unit Documented by: Metoprolol Succinate (Toprol Xl -) 100 mg PO DAILY [facility] Last Admin: 10/13/19 09:26 Dose: 100 mg Documented by: Ramipril (Altace -) 5 mg PO DAILY [facility] Last Admin: 10/13/19 09:25 Dose: 5 mg Documented by: Tamsulosin HCl (Flomax -) 0.4 mg PO DAILY@0830 [facility] Last Admin: 10/13/19 09:24 Dose: 0.4 mg Documented by: Tramadol HCl (Ultram -) 25 mg PO Q6H PRN PRN Reason: PAIN LEVEL 4 - 6 Last Admin: 10/11/19 23:02 Dose: 25 mg Documented by: - Objective Vital Signs: Vital Signs Temperature 98.7 F 10/14/19 05:33 Pulse Rate 80 10/14/19 05:33 Respiratory Rate 18 10/14/19 05:33 Blood Pressure 98/56 L 10/14/19 05:33 O2 Sat by Pulse Oximetry (%) 97 10/13/19 21:00 Labs: CBC, BMP 10/14/19 06:40 10/13/19 06:15 INR, PTT INR 1.06 (0.83-1.09) 10/12/19 06:10 Problem List - Problems (1) Hyperlipidemia Assessment/Plan: f/u lipid profile Code(s): E78.5 - HYPERLIPIDEMIA, UNSPECIFIED (2) BPH (benign prostatic hyperplasia) Assessment/Plan: f/u with urologist. Code(s): N40.0 - BENIGN PROSTATIC HYPERPLASIA WITHOUT LOWER URINRY TRACT SYMP (3) CAD (coronary artery disease) Assessment/Plan: Hx CAD-->PCI. TNI < 0.02 x 2 . EKG sinus tachycardia; ill-defined density in right mid-field (CXR). ECHO (technically difficult study): normal LVEF. F/u prior cardiac workup; hx coronary stents. F/u lipid profile. Code(s): I25.10 - ATHSCL HEART DISEASE OF [place] CORONARY ARTERY W/O ANG PCTRS (4) Fall Assessment/Plan: Hx Parkinson's; uses walker at home. Multiple falls , especially since April, associated with Parkinsons, per . R/o syncope. Orthostatic VS. Avoid dehydration. ECHO: normal LVEF. F/u carotid artery US. Discussed pt with his . He has had frequent falls, increased since April, thought associated with progressive Parkinsonism (? no hx loss of consciousness). He uses a walker at home, but does not always have someone nearby in case he loses his balance. In light of this, using an antiplatelet (was on clopidogrel) may put him at high risk for bleed. Code(s): W19.XXXA - UNSPECIFIED FALL, INITIAL ENCOUNTER (5) HTN (hypertension) Code(s): I10 - ESSENTIAL (PRIMARY) HYPERTENSION (6) Parkinsons Assessment/Plan: On levo/carbidopa. Code(s): G20 - PARKINSON'S DISEASE (7) Problem with urinary catheter Code(s): T83.9XXA - UNSP COMPLICATION OF GENITOURINARY PROSTH DEV/GRFT, INIT (8) Urinary retention Code(s): R33.9 - RETENTION OF URINE, UNSPECIFIED (9) Hyperglycemia Assessment/Plan: F/u fasting glucose; HGBA1c. Code(s): R73.9 - HYPERGLYCEMIA, UNSPECIFIED (10) Sinus tachycardia Assessment/Plan: Multiple factors may be contributing to this, including pain, anemia, anxiety. CXR: "ill-defined right mid-lung field density"; f/u, and consider r/o of PE, though normal O2 sat on RA. TSH WNL. F/u workup for anemia (Hb 15 in early September; now 10). Code(s): R00.0 - TACHYCARDIA, UNSPECIFIED (11) Anemia Assessment/Plan: decrease in Hb this admission; f/u workup. Code(s): D64.9 - ANEMIA, UNSPECIFIED
--- NOTE | 2019-10-14 08:36 | PN ---
Progress Note (short form) - Note Progress Note: Neurology CHIEF COMPLAINT: s/p fall PCP: Dr. Araiza HISTORY OF PRESENT ILLNESS: 74 y/o yakut speaking male with PMH of CAD s/p stents (on plavix), BPH, HTN , COPD, parkinsons presented to the ED s/p fall- as per the and him he was going to the bathroom on morning of admission when he tripped and fell (patient is unsteady at baseline 2/2 parkinsons and uses a cane sporadically) forward injuring his chi, b/l knees, elbows, and rib so he came here; he denied hitting his head- denied any headaches/dizziness/chest pain- as per the he does have frequent falls ; denied any cough/recent travel or sick contacts. CT of Cervical spine reviewed and showed no acute fracture. Multilevel degenerative changes. Head CT performed and demonstrated no acute pathology. Repeated Head CT also reviewed and demonstrated no acute pathology. He is calm and comfortable this morning, remains on Sinemet 25/100, 3 times a day and does have bradykinesia with [id number] cogwheeling. He may benefit from a slightly increased dose of Sinemet and I increased to 4 times a day. Patient in wheelchair at nursing station this morning, ppleasant and not agitated. ag service manager note reviewed patient possibly for transfer to half-way facility, no objection to this. Active Medications Atorvastatin Calcium (Lipitor -) 10 mg PO HS [facility] Last Admin: 10/13/19 22:47 Dose: 10 mg Documented by: Carbidopa/Levodopa (Sinemet 25/100 -) 1 each PO QID [facility] Last Admin: 10/13/19 22:47 Dose: 1 each Documented by: Finasteride (Proscar -) 5 mg PO DAILY [facility] Last Admin: 10/13/19 09:26 Dose: 5 mg Documented by: Heparin Sodium (Porcine) (Heparin -) 5,000 unit SQ BID [facility] Last Admin: 10/13/19 22:47 Dose: 5,000 unit Documented by: Metoprolol Succinate (Toprol Xl -) 100 mg PO DAILY [facility] Last Admin: 10/13/19 09:26 Dose: 100 mg Documented by: Ramipril (Altace -) 5 mg PO DAILY [facility] Last Admin: 10/13/19 09:25 Dose: 5 mg Documented by: Tamsulosin HCl (Flomax -) 0.4 mg PO DAILY@0830 [facility] Last Admin: 10/13/19 09:24 Dose: 0.4 mg Documented by: Tramadol HCl (Ultram -) 25 mg PO Q6H PRN PRN Reason: PAIN LEVEL 4 - 6 Last Admin: 10/11/19 23:02 Dose: 25 mg Documented by: PHYSICAL EXAMINATION Vital Signs Period Temp Pulse Resp BP Sys/Amanda Pulse Ox Last 24 Hr 98.2 F-99.1 F 79-97 18-22 95-119/52-65 96-97 GENERAL: Awake, alert, in slight acute distress HEAD: Normal with no signs of trauma. EYES: PEERLA; EOMI; no scleral icterus . NECK: +chin injury s/p lac repair LUNGS: CTA B/L; no rales, rhonch or wheezing. HEART: Regular rate and rhythm, normal S1 and S2 without murmur, rub or gallop. ABDOMEN: Soft, soft; NT/ND +BS in all 4 quadrants; + tenderness on b/l ribs MUSCULOSKELETAL: slight decreased ROM on right LE ; UPPER EXTREMITIES:b/l hematomas on b/l elbows LOWER EXTREMITIES: Right knee hematoma with slight swelling; warm; well-perfused no clubbing/cyanosis or edema . NEUROLOGICAL: Cranial nerves II-XII intact. Normal speech. Normal gait. SKIN: Warm, dry, bruising B/L elbows and knees CBCD WBC 10.7 K/mm3 (4.0-10.0) H 10/14/19 06:40 RBC 3.38 M/mm3 (4.00-5.60) L 10/14/19 06:40 Hgb 10.4 GM/dL (11.7-16.9) L 10/14/19 06:40 Hct 30.4 % (35.4-49) L 10/14/19 06:40 MCV 89.9 fl (80-96) 10/14/19 06:40 MCHC 34.3 g/dl (32.0-35.9) 10/14/19 06:40 RDW 13.5 % (11.9-15.9) 10/14/19 06:40 Plt Count 493 K/MM3 (134-434) H 10/14/19 06:40 MPV 6.7 fl (7.5-11.1) L 10/14/19 06:40 CMP Sodium 139 mmol/L (136-145) 10/13/19 06:15 Potassium 3.9 mmol/L (3.5-5.1) 10/13/19 06:15 Chloride 106 mmol/L (98-107) 10/13/19 06:15 Carbon Dioxide 26 mmol/L (21-32) 10/13/19 06:15 Anion Gap 8 MMOL/L (8-16) 10/13/19 06:15 BUN 13.8 mg/dL (7-18) 10/13/19 06:15 Creatinine 0.7 mg/dL (0.55-1.3) 10/13/19 06:15 Random Glucose 121 mg/dL (74-106) H 10/13/19 06:15 Calcium 7.8 mg/dL (8.5-10.1) L 10/13/19 06:15 Total Bilirubin 1.0 mg/dL (0.2-1) 10/12/19 06:10 AST 18 U/L (15-37) 10/12/19 06:10 ALT < 6 U/L (13-61) L 10/12/19 06:10 Alkaline Phosphatase 102 U/L (45-117) 10/12/19 06:10 Total Protein 5.5 g/dl (6.4-8.2) L 10/12/19 06:10 Albumin 2.7 g/dl (3.4-5.0) L 10/12/19 06:10 CARDIAC ENZYMES Creatine Kinase 212 U/L (26-308) 10/13/19 06:15 Troponin I < 0.02 ng/ml (0.00-0.05) 10/11/19 18:12 ASSESSMENT/PLAN: 74 y/o yakut speaking male with PMH of CAD s/p stents (on plavix), BPH, HTN , COPD, parkinsons presented to the ED s/p fall- as per the and him he was going to the bathroom on morning of admission when he tripped and fell (patient is unsteady at baseline 2/2 parkinsons and uses a cane sporadically) forward injuring his chi, b/l knees, elbows, and rib so he came here; he denied hitting his head- denied any headaches/dizziness/chest pain- as per the he does have frequent falls ; denied any cough/recent travel or sick contacts. CT of Cervical spine reviewed and showed no acute fracture. Multilevel degenerative changes. Head CT performed and demonstrated no acute pathology. Repeated Head CT also reviewed and demonstrated no acute pathology. He is calm and comfortable this morning, remains on Sinemet 25/100, 3 times a day and does have bradykinesia with [id number] cogwheeling. He may benefit from a slightly increased dose of Sinemet and would advise increasing to 4 times a day. May also require short-term rehabilitation and physical therapy to help with gait and ambulation if patient and family agreeable. Fall precautions recommended, assistive (cane vs walker) device. Monitor blood pressure, maintain normotensive range, strict avoidance of head trauma much as possible. Patient in wheelchair at nursing station this morning, ppleasant and not agitated. ag service manager note reviewed patient possibly for transfer to half-way facility, no objection to this. Should continue four-time a day dosing of the Sinemet for now. Neurologically sstable at this time
[2019-10-14] MEDS ORDERED: SODIUM CHLORIDE 0.9% 500 ML INFUS.BAG IV ONE (08:45)
[2019-10-14] MEDS ORDERED: PT OWN MED DRAWER 7, Y5N ONE ×2 (09:52→13:35)
[2019-10-14] MEDS: TAMSULOSIN HCL 0.4 MG CAP PO SCH (10:00)
[2019-10-14] MEDS: HEPARIN NA (PORCINE) 5,000 UNITS/ML 1ML VIAL SQ SCH (10:00)
[2019-10-14] MEDS: CARBIDOPA/LEVODOPA 25/100 TABLET (FP) PO SCH (10:01)
[2019-10-14] MEDS: RAMIPRIL 5 MG CAPSULE (FP) PO SCH (10:01)
[2019-10-14] MEDS: FINASTERIDE 5 MG TABLET (FP) PO SCH (10:01)
[2019-10-14 12:59] VITALS: BP 116/55; PULSE 111; TEMP 98.5
--- NOTE | 2019-10-14 13:05 | PN ---
Teaching Attending Note Name of Resident: Graham Amaya ATTENDING PHYSICIAN STATEMENT I saw and evaluated the patient. I reviewed the resident's note and discussed the case with the resident. I agree with the resident's findings and plan as documented. SUBJECTIVE: Feels well - no complaints. OBJECTIVE: Afebrile, Hemodynamically stable. Last Vital Signs Temp Pulse Resp BP Pulse Ox 98.5 F 111 H 18 116/55 L 99 10/14/19 09:00 10/14/19 09:00 10/14/19 09:00 10/14/19 09:00 10/14/19 09:00 HEENT - Large laceration over chin with ecchymosis (closed in ED) Heart - S1, S2, RRR Lungs - clear to auscultation. No sternal pain/tenderness/laxity Abdomen - Soft, non-tender. Bowel Sounds normal. Extremities - bruising U and L extremities. No edema, no calf tenderness. Neuro - AAO x 3. Power normal. Cogwheeling. Laboratory Results - last 24 hr 10/14/19 06:40 WBC 10.7 H RBC 3.38 L Hgb 10.4 L Hct 30.4 L MCV 89.9 MCH 30.8 MCHC 34.3 RDW 13.5 Plt Count 493 H MPV 6.7 L Current Medications Generic Name Dose Route Start Last Admin Trade Name Freq PRN Reason Stop Dose Admin Atorvastatin Calcium 10 mg 10/11/19 22:00 10/13/19 22:47 Lipitor - PO 10 mg HS GIRISH Administration Carbidopa/Levodopa 1 each 10/12/19 10:00 10/14/19 10:01 Sinemet 25/100 - PO 1 each QID [facility] Administration Finasteride 5 mg 10/12/19 10:00 10/14/19 10:01 Proscar - PO 5 mg DAILY [facility] Administration Heparin Sodium (Porcine) 5,000 unit 10/12/19 22:00 10/14/19 10:00 Heparin - SQ 5,000 unit BID GIR[facility] Administration Metoprolol Succinate 100 mg 10/12/19 10:00 10/14/19 10:01 Toprol Xl - PO 100 mg DAILY [facility] Administration Ramipril 5 mg 10/12/19 10:00 10/14/19 10:01 Altace - PO 5 mg DAILY [facility] Administration Tamsulosin HCl 0.4 mg 10/12/19 08:30 10/14/19 10:00 Flomax - PO 0.4 mg DAILY@0830 [facility] Administration Tramadol HCl 25 mg 10/11/19 14:17 10/11/19 23:02 Ultram - PO 25 mg Q6H PRN Administration PAIN LEVEL 4 - 6 Home Medications Medication Instructions Recorded Atorvastatin Ca [Lipitor] 10 mg PO HS 09/04/19 Carbidopa/Levodopa 1 each PO TID 09/04/19 [Carbidopa-Levodopa 25-100 Tab] Clopidogrel Bisulfate [Clopidogrel] 75 mg PO DAILY 09/04/19 Finasteride [Proscar -] 5 mg PO DAILY 09/04/19 Fluticasone/Umeclidin/Vilanter 1 each IH DAILY 09/04/19 [Trelegy Ellipta 100-62.5-25] Metoprolol Succinate [Toprol Xl] 100 mg PO DAILY 09/04/19 Ramipril [Altace] 5 mg PO DAILY 09/04/19 Tamsulosin HCl [Flomax] 0.4 mg PO DAILY 09/04/19 ASSESSMENT/PLAN 74 year old Japanese speaking male with history of CAD s/p PCI/stents x3, multiple falls in the past, BPH, HTN , Parkinson's Disease, COPD, not on O2 presents to the ED with laceration to chin s/p fall. 1. Head trauma s/p fall secondary to worsening Parkinson's s/p closure of chin lac in ED CT Head neg x 2. Echo - normal Carotid Duplex - intimal thickening without hemodynamically significant stenosis. No fractures on trauma series. Evaluated by cardiology - no further work-up required. PT - needs placement due to unsteady gait and fall risk. 2. Parkinson's Disease with worsening ambulatory dysfunction Seen by Neurology - recommended for increase in Carbidopa/Levodopa to 4 times daily. For SNF placement for decreasing mobility/ambulatory dysfunction. 3. HTN - resumed on Metoprolol and Ramipril. 4. CAD s/p PCI/Stent x 3. Continue Plavix, BB, SOLEDAD-I. Statin held due to elevated CPK on presentation, now improved. Can resume Statin on discharge. 5. BPH - Continue Flomax, Proscar. 6. COPD/?ILD - Stable. Not in acute exacerbation. DuoNebs PRN. 7. UTI - Thickened Bladder Wall and large prostate on CT - asymptomatic. Urine Cx pos for Enterococcus. Will treat with Amoxicillin for 7 days with Urology follow up on discharge. 8. RML Lung density on CXR - not seen on CT Chest. 9. Hypophosphatemia - repleted 10. Sclerotic Bone Lesions R Ribs, incidental finding on CT Chest - for Hematology referral as out-patient. Medically stable for discharge to SNF.
[2019-10-14] MEDS ORDERED: NITROFURANTOIN MACROCRYSTAL 50 MG CAPSULE (FP) PO SCH ×2 (13:16→18:00)
== END 2019-10-14 14:00 | DRG 57 ==
LOC: JER 07:03 → JERBED 12:10 → J4W 10-12 14:57
PROC: 0HQ1XZZ Repair Face Skin, External Approach (ICD-10-PCS; principal; 2019-10-11)
DX: G20 Parkinson's disease (principal); N39.0 Urinary tract infection, site not specified; S01.81XA Laceration without foreign body of other part of head, initial encounter; I25.10 Atherosclerotic heart disease of native coronary artery without angina pectoris; J44.9 Chronic obstructive pulmonary disease, unspecified; N40.0 Benign prostatic hyperplasia without lower urinary tract symptoms; E83.39 Other disorders of phosphorus metabolism; R29.6 Repeated falls; M89.9 Disorder of bone, unspecified; Z95.5 Presence of coronary angioplasty implant and graft; W18.39XA Other fall on same level, initial encounter; Y92.89 Other specified places as the place of occurrence of the external cause; Z88.0 Allergy status to penicillin; B95.2 Enterococcus as the cause of diseases classified elsewhere
CPT/HCPCS: 36415; 70450-TC; 70486-TC; 71045-TC-FY; 71111-TC-FY; 71250-TC; 72125-TC; 73070-TC-RT-FY; 73523-TC-FY; 73560-TC-LT-FY; 73560-TC-RT-FY; 74176-TC; 80048; 80053; 80061; 81003; 82550; 82553; 83036; 83721; 83735; 84100; 84443; 84484; 85025; 85027; 85610; 85730; 87086; 87186; 87633; 93005; 93010; 93306-TC; 93880-TC; 97116-GP; 97162-GP; 99285-25; J1644; J7030